=== PATIENT | female | born 1955 | race Caucasian/White ===

== ENCOUNTER 2016-04-25 07:57 | Inpatient (IN) | payer BC, MEDICAID ==
[2015-10-10 14:46] VITALS: Ht 177.8 cm; Wt 64.4 kg
[~2016-04-25] VITALS: Ht 177.8 cm; Wt 64.4 kg
[2016-04-25 07:57] VITALS: BP 124/67; PULSE 105; RESP 22; TEMP 98.1; O2SAT 86
[~2016-04-25 07:57] MED LIST: APIX5TAB PO; BUPR-120 PO; BUPR300T55 PO; CARI350T27 PO; CLON0.5T4 PO; DILT180C88 PO; FLUT1DIS3 INH; HYDR-4100 PO; LETR2.5T6 PO; LEVO50TA8 PO; OMEP20CA10 PO; PANT20TA2 PO; PRED20TA PO; QUET200T PO; VENL75CA PO; ZOLP10TA2 PO; [UNRECOGNIZED DRUG - CODE] PO
--- NOTE | 2016-04-25 07:57 | NUR ---
BROUGHT BACK TO BED #7 AND TRIAGED. WILL ASSUME CARE
--- NOTE | 2016-04-25 08:05 | NUR ---
DR ESTRADA AT BEDSIDE FOR EVALUATION
--- NOTE | 2016-04-25 08:06 | NUR ---
TRUCK DRIVER INSTRUCTOR AT BEDSIDE
[2016-04-25] MEDS ORDERED: methylPREDNISolone SOD SUCC/PF 62.5 MG/ML VIAL IVP ONE (08:15)
[2016-04-25] MEDS ORDERED: IPRATROPIUM/ALBUTEROL SULFATE 3 ML AMPUL.NEB INH ONE (08:15)
[2016-04-25 08:20] LABS: ABG TOTAL HEMOGLOBIN 16.9 G/dL (12.0-18.0); BLOOD GAS COHb% 4.1 % (0.5-1.5); BLOOD GAS PH 7.413 (7.350-7.450); BLOOD O2Hb% 78.8 % (94.0-97.0)
--- NOTE | 2016-04-25 08:26 | NUR ---
RESPIRATORY TREATMENT IN PROGRESS
[2016-04-25 08:33] LABS: BASOPHILS # (AUTO) 0.1 K/uL (0.0-0.2); BASOPHILS % (AUTO) 0.6 % (0.0-2.0); EOSINOPHILS # (AUTO) 0.1 K/uL (0.0-0.4); EOSINOPHILS % (AUTO) 0.4 % (0.0-4.0); HEMATOCRIT 48.9 % (36-48); HEMOGLOBIN 15.7 g/dL (12.0-16.0); LYMPHOCYTES # (AUTO) 1.3 K/uL (1.0-5.5); LYMPHOCYTES % (AUTO) 7.6 % (20.5-51.5); MEAN CORPUSCULAR HEMOGLOBIN 31 pg (27-31); MEAN CORPUSCULAR HGB CONC 32 % (32-36); MEAN CORPUSCULAR VOLUME 95 fL (79.0-98.0); MONOCYTES # (AUTO) 1.5 K/uL (0.0-1.0); MONOCYTES % (AUTO) 9.1 % (1.7-9.3); NEUTROPHILS # (AUTO) 13.7 K/uL (1.8-7.7); NEUTROPHILS % (AUTO) 82.3 % (40.0-70.0); PLATELET COUNT (AUTO) 202 K/uL (130-430); RED BLOOD CELL COUNT(AUTO) 5.14 MIL/uL (4.2-6.2); WHITE BLOOD COUNT (AUTO) 16.7 K/uL (4.8-10.8)
[2016-04-25 08:44] LABS: CALCIUM 9.1 mg/dL (8.4-11.0); CREATININE 0.78 mg/dL (0.55-1.30); POTASSIUM 4.6 mmol/L (3.5-5.1)
--- NOTE | 2016-04-25 08:44 | NUR ---
Medication reconciliation completed with information provided by MEDICATIONS BROUGHT IN BY PT. Any prior medication reconciliation on file was reviewed and corrected.
[2016-04-25 08:51] LABS: INR 1.1 (0.8-1.2); PROTHROMBIN TIME 11.4 SECS (9.5-12.5)
[2016-04-25 08:58] LABS: ALBUMIN 3.2 g/dL (3.4-4.8); TOTAL BILIRUBIN 0.4 mg/dL (0.0-1.0); TOTAL PROTEIN, SERUM 7.3 g/dL (6.4-8.3)
[2016-04-25] MEDS ORDERED: cefTRIAXone 1 GM IVPB PREMIX 50 ML IV ONE (09:00)
[2016-04-25] MEDS ORDERED: AZITHROMYCIN 500 MG in NS 250 ML IV ONE (09:00)
--- NOTE | 2016-04-25 09:22 | NUR ---
Patient removed supplemental O2 to go to the bathroom. On return to room, moderately increased work of breathing, O2 sat decreased to 79% on RA. Patient asked, "Do you think they'll admit me now?" 2LPM O2 via NC applied, O2 sat improved to 88% with improved work of breathing.
[2016-04-25 09:30] LABS: BILIRUBIN,URINE 1+ (NEGATIVE); BLOOD, URINE 1+ (NEGATIVE); CLARITY/URINE CLEAR (CLEAR); COLOR,URINE YELLOW (YELLOW); GLUCOSE,URINE NEGATIVE (NEGATIVE); KETONES,URINE 1+ (NEGATIVE); LEUKOCYTE ESTERASE ,URINE NEGATIVE (NEGATIVE); NITRITE, URINE NEGATIVE (NEGATIVE); PH,URINE 5.5 (5.0-8.0); PROTEIN URINE 2+ (NEGATIVE); UROBILINOGEN,URINE 0.2 (0.2-1.0)
[2016-04-25] MEDS ORDERED: ASPIRIN 325 MG TABLET PO ONE (09:30)
[2016-04-25] MEDS ORDERED: ENOXAPARIN SODIUM 60 MG/0.6 ML SYRINGE SUBCUT ONE (09:30)
--- NOTE | 2016-04-25 09:32 | NUR ---
DR ESTRADA IN TO SPEAK WITH PT REGARDING LAB RESULTS. DAUGHTER AT BEDSIDE.
[2016-04-25] MEDS ORDERED: AZITHROMYCIN 500 MG/VIAL (ZITHROMAX) IV ONE (09:33)
[2016-04-25 09:45] LABS: BACTERIA,URINE FEW /HPF (None Seen); WBC,URINE 0-3 /HPF (0-3)
[2016-04-25] MEDS ORDERED: ONDANSETRON HCL 4 MG/2 ML VIAL IVP PRN (10:00)
[2016-04-25] MEDS ORDERED: ALBUTEROL SULFATE 0.083% 2.5 MG/3 ML VIAL.NEB INH PRN (10:00)
[2016-04-25] MEDS ORDERED: *LOVENOX 1MG/KG Q12H/PHARMACY XX ONE (10:00)
[2016-04-25] MEDS ORDERED: NITROGLYCERIN 0.4 MG TAB.SUBL SL PRN (10:00)
[2016-04-25] MEDS ORDERED: ACETAMINOPHEN 325 MG TABLET PO PRN (10:00)
[2016-04-25] MEDS ORDERED: DIPHENHYDRAMINE INJ 50 MG/ML VIAL IVP ONE (10:15)
--- NOTE | 2016-04-25 10:23 | NUR ---
Patient will be admitted to care of DR ALFREDO. Admitted to TELE unit. Will go to room 101-A. Belongings list completed. Summary report printed. Report given to NURSE.
[2016-04-25] MEDS ORDERED: PANTOPRAZOLE SODIUM 40 MG/VIAL (PROTONIX) IVP ONE (10:30)
[2016-04-25] MEDS ORDERED: ASPIRIN 81 MG TAB.CHEW PO ONE (10:30)
--- NOTE | 2016-04-25 10:30 | NUR ---
ADMISSION NOTE Received patient from ER via gurney. Patient admitted with diagnosis of NSTEMI and COPD exacerbation. Patient is awake, alert, oriented X 3. Patient oriented to hospital room, call light, toileting, pain management and safety-teach back done. Patient informed that Gertrude will be her nurse and that their room number is 101 A. Personal belongings checked and Belongings List documented. Call light within reach.
[2016-04-25 10:33] VITALS: BP 104/64; PULSE 92; RESP 18; TEMP 99.4; O2SAT 92
--- NOTE | 2016-04-25 11:05 | NUR ---
assessment notes: transferred patient to room 101A.report given by roosevelt parkeron o2 2l/nc good saturation. iv saline lock at right forearm intact.pt coughing a lot.placed on telemetry ,sinus rhythm.call light with in reach.needs attended to. a friend at bedside.
--- NOTE | 2016-04-25 12:00 | NUR ---
echo: echo done at bedside.
[2016-04-25 13:20] VITALS: BP 104/64; PULSE 86
[2016-04-25] MEDS: ALBUTEROL SULFATE 0.083% 2.5 MG/3 ML VIAL.NEB INH SCH ×2 (13:22→19:39)
[2016-04-25] MEDS ORDERED: IOHEXOL 100 ML IV ONE (14:34)
--- NOTE | 2016-04-25 14:37 | NUR ---
RADIOLOGY: PATIENT TO RADIOLOGY PER WHEEL CHAIR FOR CT SCAN ANGIOGRAM WITH CONTRAST IN STABLE CONDITION.
[2016-04-25] MEDS: HYDROcodone/ACETAMIN 10-325 MG TAB PO PRN ×2 (15:54→22:17)
--- NOTE | 2016-04-25 15:57 | NUR ---
pt. c/o neck and bsack pain and medicated with [place] as ordered ( see e-mar). pt. awake, repositioned self. needs attended.
[2016-04-25 16:11] VITALS: BP 115/74; PULSE 58; RESP 16; TEMP 97.8; O2SAT 91
--- NOTE | 2016-04-25 17:40 | NUR ---
pt. still c/o back and neck pain, did not help much on the oral pain med as pt. verbalized.will medicate with Morphine as ordered.pt. eating dinner when checked on high fowlers position. O2 on , noted occasional productive cough.
[2016-04-25] MEDS: MORPHINE 2 MG/ML INJ. SYRINGE IVP PRN (17:42)
--- NOTE | 2016-04-25 17:49 | NUR ---
CARDIO CONSULT: CALLED DR ALBERTO'S EXCHANGE AND LEFT MESSAGE C/O JENI.
--- NOTE | 2016-04-25 19:15 | NUR ---
pt. remains awake, informed about change of shift, MARGOT Youngblood will endorse pt. to incoming shift.
[2016-04-25 19:40] VITALS: BP 118/72; PULSE 81; RESP 15; TEMP 98.7; O2SAT 91
--- NOTE | 2016-04-25 20:15 | NUR ---
OPENING NOTES PATIENT IS A/OX4. NO SIGNS OF DISTRESS. BREATHING IS NON LABORED. O2 IS ON AND FLOWING. PATIENT HAS NO COMPLAINTS OF PAIN. IV IS PATENT AND SHOWS NO SIGNS OF COMPLAINTS. COMMODE WAS PLACED AT BEDSIDE FOR PATIENT WITH HAT. PATIENT WAS EDUCATED ON FLUID RESTRICTION. PATIENT VERBALIZED UNDERSTANDING. PATIENT INSTRUCTED TO CALL FOR ASSISTANCE. BED ALARM IS ON. CALL LIGHT IS WITHIN. WILL CONTINUE TO MONITOR.
[2016-04-25] MEDS: methylPREDNISolone SOD SUCC 40 MG/ML VIAL IVP SCH (20:52)
[2016-04-25] MEDS: ENOXAPARIN SODIUM 60 MG/0.6 ML SYRINGE SUBCUT SCH (20:52)
--- NOTE | 2016-04-25 22:00 | NUR ---
PATIENT REQUESTED SLEEP AID PATIENT REQUESTED SLEEP AID. WILL CALL .
--- NOTE | 2016-04-25 22:05 | NUR ---
SPOKE TO DR. STEVEN REGARDING PATIENT REQUESTING SLEEP AID. WILL INPUT NEW ORDERS.
[2016-04-25] MEDS ORDERED: ZOLPIDEM TARTRATE 5 MG TABLET PO ONE (22:15)
[2016-04-26] VITALS: BP 135/78; PULSE 78; RESP 17; TEMP 98.6; O2SAT 95
--- NOTE | 2016-04-26 00:10 | NUR ---
ROUNDS PATIENT IS IN BED WATCHING TV AND RESTING COMFORTABLY. NO SIGN OF DISTRESS. BREATHING IS NON LABORED. CALL LIGHT IS WITHIN REACH. WILL CONTINUE TO MONITOR.
[2016-04-26] MEDS ORDERED: DIPHENHYDRAMINE INJ 50 MG/ML VIAL IVP PRN (00:15)
--- NOTE | 2016-04-26 03:10 | NUR ---
ROUNDS PATIENT IS IN RESTING AND WATCHING. NO SIGNS OF DISTRESS. BREATHING IS NON LABORED. WILL CONTINUE TO MONITOR. CALL LIGHT IS WITHIN REACH. PATIENT INSTRUCTED TO CALL FOR ASSISTANCE.
[2016-04-26] MEDS: ALBUTEROL SULFATE 0.083% 2.5 MG/3 ML VIAL.NEB INH SCH ×4 (03:22→19:35)
[2016-04-26] MEDS: MORPHINE 2 MG/ML INJ. SYRINGE IVP PRN ×2 (03:49→19:20)
[2016-04-26 04:01] VITALS: BP 128/64; PULSE 83; RESP 18; TEMP 98.7; O2SAT 96
--- NOTE | 2016-04-26 05:15 | NUR ---
HYGIENE PATIENT WAS GIVEN ORAL HYGIENE PRODUCTS.
--- NOTE | 2016-04-26 06:46 | NUR ---
CLOSING NOTES PATIENT IS IN BED RESTING AND WATCHING TV. NO SIGNS OF DISTRESS. BREATHING IS NON LABORED. IV IS PATENT AND SHOWS NO SIGNS OF COMPLICATION. PATIENT HAS NO COMPLAINTS OF PAIN. PATIENT WAS EDUCATED ON FLUID RESTRICTIONS. PATIENT VERBALIZED UNDERSTANDING. WILL ENDORSE TO THE MORNING NURSE.
[2016-04-26 07:25] LABS: POTASSIUM 3.9 mmol/L (3.5-5.1)
[2016-04-26 07:26] LABS: CALCIUM 9.3 mg/dL (8.4-11.0); CREATININE 0.58 mg/dL (0.55-1.30); PHOSPHORUS 2.5 mg/dL (2.7-4.5)
--- NOTE | 2016-04-26 07:52 | NUR ---
Patient confusion on afib medicine. Review of previous encounter medicines. Notified pt she is on eliquis for afib. Maintains there is another medicine for afib.
--- NOTE | 2016-04-26 08:05 | NUR ---
Patient says she feels like she wants to leave the hospital because of fluid restriction, and not being prescribed another medicine in addition to ambien to help her sleep, and not being able to see the specialists she normally sees to get her prescriptions. Asked patient what I could help with right now. Says she would not need anything except a deodorant and private room. Wants to watch television at night. Will ask charge nurse if we can get private room.
--- NOTE | 2016-04-26 08:25 | NUR ---
Patient moved to room 102A. Says its up to providers to prescribe medication and she will see if she will stay. [place] like she would yesterday and did not want to do that to her daughters.
[2016-04-26 08:49] LABS: HEMATOCRIT 49.7 % (36-48); HEMOGLOBIN 16.2 g/dL (12.0-16.0); MEAN CORPUSCULAR HEMOGLOBIN 30 pg (27-31); MEAN CORPUSCULAR HGB CONC 33 % (32-36); MEAN CORPUSCULAR VOLUME 93 fL (79.0-98.0); PLATELET COUNT (AUTO) 230 K/uL (130-430); RED BLOOD CELL COUNT(AUTO) 5.36 MIL/uL (4.2-6.2); RED CELL DISTRIBUTION WIDTH 13.7 % (9.0-15.0); WHITE BLOOD COUNT (AUTO) 14.5 K/uL (4.8-10.8)
[2016-04-26] MEDS: methylPREDNISolone SOD SUCC 40 MG/ML VIAL IVP SCH ×2 (08:50→21:55)
[2016-04-26] MEDS: PANTOPRAZOLE SODIUM 40 MG/VIAL (PROTONIX) IVP SCH (08:51)
[2016-04-26] MEDS: ENOXAPARIN SODIUM 60 MG/0.6 ML SYRINGE SUBCUT SCH ×2 (08:51→21:09)
[2016-04-26] MEDS: clonazePAM 0.5 MG TABLET PO SCH ×2 (08:52→21:00)
[2016-04-26] MEDS: QUEtiapine FUMARATE 100 MG TABLET PO SCH ×3 (08:52→21:10)
[2016-04-26] MEDS: ASPIRIN 81 MG TAB.CHEW PO SCH (08:52)
[2016-04-26] MEDS: buPROPion HCL 150 MG XL TAB PO SCH (08:52)
[2016-04-26] MEDS: DILTIAZEM HCL 180 MG CAP.SR.24H PO SCH (08:55)
[2016-04-26] MEDS: CARISOPRODOL 350 MG TABLET PO SCH ×5 (08:56→21:10)
[2016-04-26] MEDS: HYDROcodone/ACETAMIN 10-325 MG TAB PO PRN ×2 (08:56→18:25)
[2016-04-26] MEDS: AZITHROMYCIN 500 MG in NS 250 ML IV SCH (08:56)
[2016-04-26 08:58] VITALS: BP 123/66; PULSE 90; RESP 18; TEMP 97; O2SAT 94
[2016-04-26] MEDS ORDERED: Effexor XR 37.5 MG PO SCH (09:00)
[2016-04-26] MEDS ORDERED: FLUTICASONE/VILANTEROL 1 EACH BLST.W.DEV INH SCH (09:00)
[2016-04-26] MEDS: LEVOTHYROXINE SODIUM 0.05 MG TABLET PO SCH (09:00)
--- NOTE | 2016-04-26 10:00 | NUR ---
Patient c/o some itching at this time to provider. Decrease rate of antibiotic provider directs web content writer. Rate decreased.
[2016-04-26 10:05] LABS: ATYPICAL LYMPHOCYTES % 0 % (0-0); BAND % (MANUAL) 0 % (0-6); BASOPHILS % (MANUAL) 0 % (0-2); EOSINOPHILS % (MANUAL) 0 % (0-7); LYMPHOCYTES % (MANUAL) 14 % (20-46); MONOCYTES % (MANUAL) 5 % (0-11)
[2016-04-26 12:00] VITALS: BP 102/66; PULSE 94; RESP 21; TEMP 96; O2SAT 97
--- NOTE | 2016-04-26 12:47 | NUR ---
Patient tolerated 100% of lunch. Needs met at this time.
--- NOTE | 2016-04-26 14:16 | NUR ---
Patient needs met. Refuses the soma and seroquel at this time. Says she only takes prn soma qid. Says seroquel 200 was enough.
[2016-04-26 19:30] VITALS: BP 104/71; PULSE 83; RESP 16; TEMP 97.8; O2SAT 94
--- NOTE | 2016-04-26 19:30 | NUR ---
notes received the pt from the day nurse,pt a/a/ox4 no c/o pain or discomfort.o2 via nc in place at 2l/min.monitor in place and shows SR iv intact to rt wrist,no redness or swelling noted.pt on fluid restriction. dr quintero is here making rounds.no c/o pain or sob when asked.educated the pt to call for and needs she may have.
[2016-04-26] MEDS: ZOLPIDEM TARTRATE 5 MG TABLET PO PRN (21:09)
--- NOTE | 2016-04-26 21:30 | NUR ---
notes pt appears asleep,no respiratory difficulty noted.call light within reach.continue to monitor.
--- NOTE | 2016-04-26 23:37 | NUR ---
notes pt sleeping,call light within reach.continue to monitor.
[2016-04-27] VITALS (7 sets, daily range): BP systolic 93–125; BP diastolic 58–71; PULSE 73–87; RESP 18–20; TEMP 96.5–98.2; O2SAT 91–96
--- NOTE | 2016-04-27 01:25 | NUR ---
notes pt remains asleep ,call light within reach.continue to monitor.
[2016-04-27] MEDS: ALBUTEROL SULFATE 0.083% 2.5 MG/3 ML VIAL.NEB INH SCH ×2 (01:30→07:03)
--- NOTE | 2016-04-27 03:16 | NUR ---
notes pt remains asleep,no distress noted.call light within reach.continue to monitor.
--- NOTE | 2016-04-27 05:22 | NUR ---
notes pt sleeping,no respiratory difficulty noted.call light within reach.continue to monitor.
[2016-04-27] MEDS: LEVOTHYROXINE SODIUM 0.05 MG TABLET PO SCH (06:14)
--- NOTE | 2016-04-27 06:24 | NUR ---
closing notes pt awaken for am medication,pt with no complaints.will endorse the care of the pt to the day nurse.
[2016-04-27 07:21] LABS: BASOPHILS % (AUTO) 0.1 % (0.0-2.0); HEMATOCRIT 44.7 % (36-48); HEMOGLOBIN 14.6 g/dL (12.0-16.0); LYMPHOCYTES # (AUTO) 0.9 K/uL (1.0-5.5); LYMPHOCYTES % (AUTO) 8.6 % (20.5-51.5); MEAN CORPUSCULAR HEMOGLOBIN 31 pg (27-31); MEAN CORPUSCULAR HGB CONC 33 % (32-36); MEAN CORPUSCULAR VOLUME 94 fL (79.0-98.0); MONOCYTES # (AUTO) 0.4 K/uL (0.0-1.0); MONOCYTES % (AUTO) 3.5 % (1.7-9.3); NEUTROPHILS # (AUTO) 9.3 K/uL (1.8-7.7); NEUTROPHILS % (AUTO) 87.8 % (40.0-70.0); PLATELET COUNT (AUTO) 219 K/uL (130-430); RED BLOOD CELL COUNT(AUTO) 4.73 MIL/uL (4.2-6.2); RED CELL DISTRIBUTION WIDTH 14.1 % (9.0-15.0); WHITE BLOOD COUNT (AUTO) 10.6 K/uL (4.8-10.8)
[2016-04-27 07:30] LABS: CALCIUM 9.1 mg/dL (8.4-11.0); CREATININE 0.7 mg/dL (0.55-1.30); POTASSIUM 5.3 mmol/L (3.5-5.1)
--- NOTE | 2016-04-27 08:00 | NUR ---
PT IN BED, AA0, NO DISTRESS, NO SOB, C/O PAIN. WILL ADDRESS APIN MED, VITALS 118/63 HR 87, O2 SAT 91%
[2016-04-27] MEDS: CARISOPRODOL 350 MG TABLET PO SCH ×4 (08:33→20:40)
[2016-04-27] MEDS: ASPIRIN 81 MG TAB.CHEW PO SCH (08:33)
[2016-04-27] MEDS: QUEtiapine FUMARATE 100 MG TABLET PO SCH ×3 (08:33→20:40)
[2016-04-27] MEDS: AZITHROMYCIN 500 MG in NS 250 ML IV SCH (08:35)
[2016-04-27] MEDS: DILTIAZEM HCL 180 MG CAP.SR.24H PO SCH (08:35)
[2016-04-27] MEDS: methylPREDNISolone SOD SUCC 40 MG/ML VIAL IVP SCH (08:36)
[2016-04-27] MEDS: PANTOPRAZOLE SODIUM 40 MG/VIAL (PROTONIX) IVP SCH (08:36)
[2016-04-27] MEDS: ENOXAPARIN SODIUM 60 MG/0.6 ML SYRINGE SUBCUT SCH ×2 (08:38→20:41)
[2016-04-27] MEDS: buPROPion HCL 150 MG XL TAB PO SCH (08:40)
[2016-04-27] MEDS: clonazePAM 0.5 MG TABLET PO SCH ×2 (08:50→20:40)
--- NOTE | 2016-04-27 08:53 | NUR ---
Faxed DC order to arrange home health to [phone] Filed fax confirmation in [employer]ocrates.
[2016-04-27] MEDS: HYDROcodone/ACETAMIN 10-325 MG TAB PO PRN ×3 (08:57→18:34)
--- NOTE | 2016-04-27 10:00 | NUR ---
PT IN BED, C/O PAIN, 06/24, REQUESTED FOR MORPHINE BUT PT IS NOT ON MORPHINE, PT SAID IT IS OK, TOLD HER WE WILL CALL MD TO ASK IF OK TO RESUME MORPHINE.
[2016-04-27] MEDS ORDERED: BISACODYL 5 MG TABLET.DR (DULCOLAX) PO PRN ×2 (11:45→14:15)
--- NOTE | 2016-04-27 11:48 | NUR ---
SPOKE WITH DR MALIK RE K LEVEL OF 5.3 , NO ORDERS GIVEN. MADE AWARE RE PT REQUESTING FOR MORPHINE, NO ORDER GIVEN, NEW ORDER GIVEN ONLY FOR STOOL SOFTENER. ORDERS DOCUMENTED AND CARRIED OUT
--- NOTE | 2016-04-27 11:51 | NUR ---
PT IN BED, MADE AWARE OF NEW ORDERS FROM MD. NO SOB, NO DISTRESS.
--- NOTE | 2016-04-27 12:00 | NUR ---
PT IN BED, NO C/O PAIN, NO SOB, NO DISTRESS.
[2016-04-27] MEDS ORDERED: methylPREDNISolone SOD SUCC/PF 62.5 MG/ML VIAL IVP SCH (14:00)
--- NOTE | 2016-04-27 14:00 | NUR ---
PT IN BED, USED THE BS COMMODE FOR URINATION. DID NOT REQUIRE ASSIST.
--- NOTE | 2016-04-27 17:50 | NUR ---
PT IN BED, FAMILY AT BEDSIDE, EATING DINNER FAMILY BROUGHT, NO C/O PAIN. NO SOB, NO DISTRESS.
--- NOTE | 2016-04-27 18:00 | NUR ---
PT IN BED, REQUESTED FOR PAIN MEDS FOR C/O PAIN ON NECK AND LOWER BACK. WILL PROVIDE PAIN MED.
--- NOTE | 2016-04-27 19:30 | NUR ---
INITIAL NOTE Patient resting on the bed. Respiration even and unlabored. No acute distress. On O2 2L/min via NC. C/o neck and lower back pain 6/10, [place] 10/325mg was given at 1834. Per patient she had chronic neck and lower back pain for about six years, that is the pain she can tolerated now, pain med help a little. Skin warm and dry to touch. SL intact to RFA, no redness, no swelling. Discussed the safety issue, use call light when need help, and plan of care, verbally understanding. Bedside commode provided at bedside. Patient refused to turn on bed alarm. Safety measure maintained. Bed in low position, side rails up. Will continue to monitor.
[2016-04-27] MEDS ORDERED: FAMOTIDINE 20 MG TABLET PO SCH (21:00)
[2016-04-27] MEDS: ZOLPIDEM TARTRATE 5 MG TABLET PO PRN (21:50)
--- NOTE | 2016-04-27 21:51 | NUR ---
AMBIEN GIVEN Patient c/o insomnia, Ambien 10mg PO given as ordered. No acute distress. Continue on O2 2L/min via NC. Safety measure maintained. Call light within reached. Will continue to monitor.
--- NOTE | 2016-04-27 22:30 | NUR ---
ROUND Patient resting on the bed with eyes closed. No acute distress. Continue on O2 via NC. Safety measure maintained. Call light within reached. Continue to monitor.
[2016-04-28] VITALS (8 sets, daily range): BP systolic 93–138; BP diastolic 55–77; PULSE 73–106; RESP 17–20; TEMP 96.4–97.8; O2SAT 93–99
[2016-04-28] MEDS: HYDROcodone/ACETAMIN 10-325 MG TAB PO PRN ×5 (00:05→23:47)
--- NOTE | 2016-04-28 00:07 | NUR ---
NORCO GIVEN Patient c/o lower back pain 10/25, [place] 10/325mg 1 tab PO given as ordered. No acute distress. Continue on O2 via NC. Safety measure maintained. Bed in low position, side rails up. Call light within reached. Continue to monitor.
--- NOTE | 2016-04-28 01:55 | NUR ---
ROUND Patient resting on the bed with eyes closed. No acute distress. Respiration even and unlabored. Continue on O2 via NC. Safety measure maintained. Call light within reached. Continue to monitor.
--- NOTE | 2016-04-28 04:00 | NUR ---
ROUND Patient sleeping comfortable. No acute distress. Respiration even and unlabored. Continue on O2 via NC. Safety measure maintained. Bed in low position, side rails up. Call light within reached. Continue to monitor.
--- NOTE | 2016-04-28 04:42 | NUR ---
NORCO GIVEN Patient c/o lower back pain 10/25, BP= 113/74, [place] 10/325mg 1 tab PO given as ordered. No acute distress. Continue on O2 via NC. Safety measure maintained. Bed in low position, side rails up. Call light within reached. Continue to monitor.
--- NOTE | 2016-04-28 05:45 | NUR ---
REASSESSED THE PAIN Patient still with pain 07/25. No acute distress. Patient stated "I used to have pain all the time. Some days good and some days not good. I will take another [place] when the time due." Instructed patient to take a deep breath when pain, verbally understanding. Safety measure maintained. Call light within reached. Will continue to monitor.
[2016-04-28] MEDS: LEVOTHYROXINE SODIUM 0.05 MG TABLET PO SCH (06:43)
--- NOTE | 2016-04-28 06:50 | NUR ---
CLOSING NOTE Patient resting on the bed. Respiration even and unlabored. No acute distress. On O2 2L/min via NC. Skin warm and dry to touch. SL intact to RFA, no redness, no swelling. All needs met. Hourly rounding during shift. Patient refused to turn on bed alarm. Safety measure maintained. Bed in low position, side rails up. Will endorse to morning shift nurse.
[2016-04-28 07:06] LABS: BASOPHILS # (AUTO) 0.1 K/uL (0.0-0.2); BASOPHILS % (AUTO) 0.6 % (0.0-2.0); EOSINOPHILS # (AUTO) 0.1 K/uL (0.0-0.4); EOSINOPHILS % (AUTO) 1.3 % (0.0-4.0); HEMATOCRIT 47.5 % (36-48); HEMOGLOBIN 15.2 g/dL (12.0-16.0); LYMPHOCYTES # (AUTO) 2.5 K/uL (1.0-5.5); LYMPHOCYTES % (AUTO) 26.7 % (20.5-51.5); MEAN CORPUSCULAR HEMOGLOBIN 31 pg (27-31); MEAN CORPUSCULAR HGB CONC 32 % (32-36); MEAN CORPUSCULAR VOLUME 95 fL (79.0-98.0); MONOCYTES # (AUTO) 0.9 K/uL (0.0-1.0); MONOCYTES % (AUTO) 9.3 % (1.7-9.3); NEUTROPHILS # (AUTO) 5.7 K/uL (1.8-7.7); NEUTROPHILS % (AUTO) 62.1 % (40.0-70.0); PLATELET COUNT (AUTO) 235 K/uL (130-430); RED BLOOD CELL COUNT(AUTO) 4.98 MIL/uL (4.2-6.2); RED CELL DISTRIBUTION WIDTH 14.2 % (9.0-15.0); WHITE BLOOD COUNT (AUTO) 9.3 K/uL (4.8-10.8)
[2016-04-28 07:57] LABS: CALCIUM 9.2 mg/dL (8.4-11.0); CREATININE 0.81 mg/dL (0.55-1.30); POTASSIUM 4.2 mmol/L (3.5-5.1)
--- NOTE | 2016-04-28 08:00 | NUR ---
NOTE PT SITTING UP IN BED WITH O2 AT 2L/NC EATING HER BREAKFAST AT THIS TIME. NO SOB/RESP DISTRESS OR PAIN/DISCOMFORT WAS NOTED. PT HAS COUGHING EPISODES, BUT NOT PRODUCTIVE AT THIS TIME. IV ON RIGHT FOREARM INTACT AND PATENT AT THIS TIME. PT HAS BSC, REFUSES TO HAVE BED ALARM ON AT THIS TIME. STATES THE BED ALARM SOUND IS TOO LOUD FOR HER. PT WAS INSTRUCTED TO CALL FOR ASSIST WHEN GETTING OUT OF BED. PT STATES SHE HAS A STEADY GAIT AND NO NEED FOR ASSISTANCE FOR HER AT THIS TIME. PT ALSO REQUESTED HER DOOR BE KEPT CLOSED AT ALL TIMES. PT STATES SHE WILL CALL IF SHE HAS ANY NEEDS OR FOR CARE. TELE UNIT INTACT AND ATTACHED AT THIS TIME. CALL LIGHT WITHIN REACH.
[2016-04-28] MEDS: DILTIAZEM HCL 180 MG CAP.SR.24H PO SCH (08:12)
[2016-04-28] MEDS: clonazePAM 0.5 MG TABLET PO SCH ×2 (08:12→21:00)
[2016-04-28] MEDS: ASPIRIN 81 MG TAB.CHEW PO SCH (08:12)
[2016-04-28] MEDS: QUEtiapine FUMARATE 100 MG TABLET PO SCH ×3 (08:12→21:26)
[2016-04-28] MEDS: buPROPion HCL 150 MG XL TAB PO SCH (08:12)
[2016-04-28] MEDS: AZITHROMYCIN 250 MG TABLET PO SCH (08:13)
[2016-04-28] MEDS: ENOXAPARIN SODIUM 60 MG/0.6 ML SYRINGE SUBCUT SCH ×2 (08:13→21:26)
[2016-04-28] MEDS: CARISOPRODOL 350 MG TABLET PO SCH ×4 (08:13→21:00)
--- NOTE | 2016-04-28 10:29 | NUR ---
pt lives in mobile home with daugh. followed by career placement services counselor. may need social science instructor to help with sevices that may assist in prevention of readmissions and supportive resources for late stage lung dz. grant antoine/lesvia/karlee [facility] [phone]
--- NOTE | 2016-04-28 10:35 | NUR ---
NOTE PT STATES SHE HAS NO NEEDS AT THIS TIME. CALL LIGHT WITHIN REACH.
--- NOTE | 2016-04-28 13:50 | NUR ---
NOTE PT HAS HER ROOM DARK FOR COMFORT. PT ASLEEP AT THIS TIME. NO SOB/RESP DISTRESS OR PAIN/DISCOMFORT NOTED AT THIS TIME. CALL LIGHT WITHIN REACH.
[2016-04-28] MEDS: methylPREDNISolone SOD SUCC/PF 62.5 MG/ML VIAL IVP SCH ×2 (14:43→21:27)
[2016-04-28] MEDS: ALBUTEROL SULFATE 0.083% 2.5 MG/3 ML VIAL.NEB INH SCH ×3 (16:06→23:00)
[2016-04-28] MEDS: IPRATROPIUM BROM 0.5 MG/2.5 ML VIAL.NEB (ATROVENT) INH SCH ×3 (16:07→23:00)
--- NOTE | 2016-04-28 18:20 | NUR ---
NOTE PT SITTING UP IN BED FINISHING HER DINNER TRAY, NO SOB/RESP DISTRESS OR PAIN/DISCOMFORT NOTED AT THIS TIME. TELE UNIT ATTACHED AND TRANSMITTING WELL. IV IN RIGHT HAND INTACT AND PATENT AT THIS TIME. PT WAS CHECKED ON Q1' AND PRN FOR NEEDS AND CARE. PT MAINTAINED WITH SAFETY PRECAUTIONS ALL SHIFT. PT REFUSED BED ALARM ALL SHIFT TO BE ON. CALL LIGHT WITHIN REACH.
--- NOTE | 2016-04-28 19:42 | NUR ---
Initial PM Note Pt was received lying in bed fully AAO X4, [place] speaking. Pt speaks and understand little [place]. No acute distress noted at this time. No c/o pain or discomfort. Saline lock is patent in LAC without any signs of infiltration. Fall precautions are in place. Bed is in the lowest and locked positions. Call light is with pt and bed alarm is on. Pt was instructed to call for assistance as needed and pt verbalized understanding. Will continue to monitor pt. Addendum: 04/28/16 at 1947 by Karuna Baeza RN Correction: Pt is Kosovan speaking and able to make her needs known. Saline lock is patent in RFA without any signs of infiltration. Bed alarm is off.
[2016-04-28] MEDS: ZOLPIDEM TARTRATE 5 MG TABLET PO PRN (21:26)
--- NOTE | 2016-04-28 21:27 | NUR ---
HS Medications/Safety HS medications given to pt, including Ambien 10mg po per pt's request for sleep. Pt refused Soma and Klonopin, but was given Seroquel with the Ambien per her request. Pt was instructed on the potential for fall due to the Seroquel and Ambien. Pt stated, "I know." Pt was instructed to call for assistance as needed, especially before getting out of bed. Pt verbalized understanding. Call light is with pt and bedside items are within pt's reach. Will continue to monitor pt.
--- NOTE | 2016-04-28 22:00 | NUR ---
Rounds Pt is resting comfortably in bed. No acute distress noted. Call light is with pt and bedside items are within pt's reach.
--- NOTE | 2016-04-28 23:47 | NUR ---
Pain Medication [place] 10/325mg 1 tablet was given po for c/o back pain with relief.
[2016-04-29 00:24] VITALS: BP 108/62; PULSE 79; RESP 18; TEMP 97.8; O2SAT 97
--- NOTE | 2016-04-29 01:30 | NUR ---
Rounds Pt is sleeping comfortably in bed. Call light is with pt.
[2016-04-29] MEDS: ALBUTEROL SULFATE 0.083% 2.5 MG/3 ML VIAL.NEB INH SCH ×4 (03:00→14:10)
[2016-04-29] MEDS: IPRATROPIUM BROM 0.5 MG/2.5 ML VIAL.NEB (ATROVENT) INH SCH ×4 (03:00→14:10)
--- NOTE | 2016-04-29 03:30 | NUR ---
Rounds Pt is sleeping comfortably in bed without any distress noted. Call light is with pt.
[2016-04-29] MEDS: HYDROcodone/ACETAMIN 10-325 MG TAB PO PRN ×3 (03:53→14:26)
--- NOTE | 2016-04-29 03:53 | NUR ---
Pain Medication [place] 10/325mg 1 tablet was given po for c/o back pain with relief.
[2016-04-29 04:29] VITALS: BP 126/86; PULSE 82; RESP 18; TEMP 97.8; O2SAT 97
--- NOTE | 2016-04-29 05:30 | NUR ---
Rounds Pt is sleeping quietly in bed. No respiratory distress noted. Call light is with pt.
[2016-04-29] MEDS: LEVOTHYROXINE SODIUM 0.05 MG TABLET PO SCH (06:27)
[2016-04-29] MEDS: methylPREDNISolone SOD SUCC/PF 62.5 MG/ML VIAL IVP SCH (06:28)
--- NOTE | 2016-04-29 06:51 | NUR ---
Closing Note Pt is awake and resting comfortably in bed. All pt's needs were attended to. No fall or injury noted this shift. Will endorse to day shift nurse.
[2016-04-29 07:57] VITALS: BP 140/76; PULSE 95; RESP 18; TEMP 97.6; O2SAT 92
--- NOTE | 2016-04-29 08:00 | NUR ---
NOTE PT SITTING UP IN BED EATING HER BREAKFAST AT THIS TIME. PT HAS O2 ON AT 2L/NC. IV IN RIGHT HAND INTACT AND PATENT AT THIS TIME. NO SOB/RESP DISTRESS OR PAIN/DISCOMFORT NOTED AT THIS TIME. PT'S TELE UNIT ON AND TRANSMITTING WELL. PT HAS BSC. PT MONITORED ON STRICT I&O'S. PT VERBALIZES UNDERSTANDING OF I&O'S AT THIS TIME. NO NEEDS NOTED. CALL LIGHT WITHIN REACH.
[2016-04-29] MEDS: clonazePAM 0.5 MG TABLET PO SCH (08:07)
[2016-04-29] MEDS: QUEtiapine FUMARATE 100 MG TABLET PO SCH ×2 (08:07→14:25)
[2016-04-29] MEDS: ASPIRIN 81 MG TAB.CHEW PO SCH (08:07)
[2016-04-29] MEDS: AZITHROMYCIN 250 MG TABLET PO SCH (08:07)
[2016-04-29] MEDS: buPROPion HCL 150 MG XL TAB PO SCH (08:07)
[2016-04-29] MEDS: DILTIAZEM HCL 180 MG CAP.SR.24H PO SCH (08:08)
[2016-04-29] MEDS: ENOXAPARIN SODIUM 60 MG/0.6 ML SYRINGE SUBCUT SCH (08:08)
[2016-04-29] MEDS: CARISOPRODOL 350 MG TABLET PO SCH ×2 (08:08→12:31)
--- NOTE | 2016-04-29 09:00 | NUR ---
NOTE DR KERR DID ROUNDS AND ORDERS GIVEN TO PT. DR KERR ALSO GAVE PT PRESCRIPTION FOR DISCHARGE HOME. CALL LIGHT WITHIN REACH.
--- NOTE | 2016-04-29 10:08 | NUR ---
Nutrition Update Shahid Scale 18 noted. Pt admitted for NSTEMI, COPD exacerbation. Diet: cardiac BMI: 20.4 kg/m2 RD to follow per nutrition care standards.
[2016-04-29 12:55] VITALS: BP 101/59; PULSE 86; RESP 17; TEMP 96.8; O2SAT 97
--- NOTE | 2016-04-29 13:00 | NUR ---
NOTE DR KERR WAS CALLED AND VERBAL DISCHARGE ORDER WAS GIVEN AT THIS TIME. TELE UNIT WAS DC'D AND RETURNED TO TRAINING ENGINEER.
--- NOTE | 2016-04-29 14:15 | NUR ---
NOTE DR KERR WAS PAGED AND VERBAL ORDER GIVEN FOR PT TO RETURN TO ALL HER HOME MEDICATIONS ON DISCHARGE. PT'S IV IN RIGHT HAND WAS DC'D. SITE BENIGN. NO SWELLING/REDNESS/BLEEDING OR TENDERNESS AT SITE NOTED AT THIS TIME. PT DRESSED IN STREET CLOTHES AND IS PACKING ALL HER BELONGINGS AT THIS TIME. PT RECEIVING HER BREATHING TREATMENTS AT THIS TIME. NO SOB/RESP DISTRESS OR PAIN/DISCOMFORT NOTED AT THIS TIME. CALL LIGHT WITHIN REACH.
--- NOTE | 2016-04-29 15:40 | NUR ---
NOTE PT OFF THE FLOOR VIA WHEELCHAIR TO PRIVATE CAR. PT HAD ALL HER BELONGINGS AND DISCHARGE PAPERWORK WITH HER. PT STABLE. NO SOB/RESP DISTRESS OR PAIN/DISCOMFORT NOTED AT THIS TIME.
[2016-04-30] MEDS ORDERED: PREDNISONE 20 MG TABLET PO SCH (09:00)
--- NOTE | 2016-05-06 13:59 | NUR ---
Discharge Follow Up Phone Call TECHNOLOGY EDUCATION INSTRUCTOR phoned patient, , on 05/05/16 and left a voicemail message. TECHNOLOGY EDUCATION INSTRUCTOR phoned and spoke with patient on 05/06/16. Patient stated that she was doing okay but still felt tired and was lacking energy. She stated she did not get a nebulizer yet and will discuss with her PCP, Dr De La Garza, at her follow up appointment tomorrow. Patient has no questions or concerns.
== END 2016-04-29 15:40 | disposition home or self-care (01) | DRG 190 ==
LOC: SED 07:57 → SMU 09:50 → STU 11:06
PROVIDERS: ADMIT Internal Medicine; ATTEND Internal Medicine
DX: J44.1 Chronic obstructive pulmonary disease with (acute) exacerbation (principal); J96.21 Acute and chronic respiratory failure with hypoxia; D68.61 Antiphospholipid syndrome; I48.0 Paroxysmal atrial fibrillation; I10 Essential (primary) hypertension; F17.210 Nicotine dependence, cigarettes, uncomplicated; I27.2 Other secondary pulmonary hypertension; E03.9 Hypothyroidism, unspecified; Z96.641 Presence of right artificial hip joint; Z79.899 Other long term (current) drug therapy; I25.2 Old myocardial infarction; Z85.3 Personal history of malignant neoplasm of breast; Z99.81 Dependence on supplemental oxygen; Z88.8 Allergy status to other drugs, medicaments and biological substances; Z91.048 Other nonmedicinal substance allergy status; Z92.3 Personal history of irradiation; Z90.49 Acquired absence of other specified parts of digestive tract; Z90.710 Acquired absence of both cervix and uterus; Z71.6 Tobacco abuse counseling
CPT/HCPCS: 36415; 36600; 71010; 71275; 80048; 80053; 80061; 81000-TC; 82803-TC; 83605; 83735-TC; 83880; 84100-TC; 84484; 85007; 85025; 85027; 85610-TC; 85730-TC; 87040-TC; 93005; 93306; 94640; 94760; 96365; 96367; 96375; 99291; C9113; J0456; J0696; J1030; J1200; J1650; J2270; J2930; J7050; J7060; Q0144; Q9967

== ENCOUNTER 2016-06-12 12:36 | Inpatient (IN) | payer BC, MEDICAID ==
[~2016-06-12] VITALS: Ht 177.8 cm; Wt 66.2 kg
[2016-06-12 12:36] VITALS: BP_SYST 158
[~2016-06-12 12:36] MED LIST changes: -BUPR300T55 PO; -OMEP20CA10 PO; -PANT20TA2 PO; -PRED20TA PO; -[UNRECOGNIZED DRUG - CODE] PO
[2016-06-12] MEDS ORDERED: ALBUTEROL SULFATE 0.083% 2.5 MG/3 ML VIAL.NEB INH PRN ×2 (12:45→13:45)
[2016-06-12] MEDS ORDERED: IPRATROPIUM BROM 0.5 MG/2.5 ML VIAL.NEB (ATROVENT) INH ONE (12:45)
[2016-06-12] MEDS ORDERED: LEVOFLOXACIN 500 MG/D5W 100 ML IV ONE (12:45)
[2016-06-12 13:02] LABS: BASOPHILS # (AUTO) 0.1 K/uL (0.0-0.2); EOSINOPHILS # (AUTO) 0.2 K/uL (0.0-0.4); EOSINOPHILS % (AUTO) 2.3 % (0.0-4.0); HEMATOCRIT 54.6 % (36-48); HEMOGLOBIN 17.7 g/dL (12.0-16.0); LYMPHOCYTES # (AUTO) 1.7 K/uL (1.0-5.5); LYMPHOCYTES % (AUTO) 22.9 % (20.5-51.5); MEAN CORPUSCULAR HEMOGLOBIN 30 pg (27-31); MEAN CORPUSCULAR HGB CONC 32 % (32-36); MEAN CORPUSCULAR VOLUME 94 fL (79.0-98.0); MONOCYTES # (AUTO) 0.7 K/uL (0.0-1.0); MONOCYTES % (AUTO) 9.5 % (1.7-9.3); NEUTROPHILS # (AUTO) 4.9 K/uL (1.8-7.7); NEUTROPHILS % (AUTO) 64.3 % (40.0-70.0); PLATELET COUNT (AUTO) 223 K/uL (130-430); RED BLOOD CELL COUNT(AUTO) 5.82 MIL/uL (4.2-6.2); RED CELL DISTRIBUTION WIDTH 14.3 % (9.0-15.0); WHITE BLOOD COUNT (AUTO) 7.6 K/uL (4.8-10.8)
[2016-06-12 13:05] LABS: BILIRUBIN,URINE NEGATIVE (NEGATIVE); BLOOD, URINE NEGATIVE (NEGATIVE); CLARITY/URINE CLEAR (CLEAR); COLOR,URINE YELLOW (YELLOW); GLUCOSE,URINE NEGATIVE (NEGATIVE); KETONES,URINE NEGATIVE (NEGATIVE); LEUKOCYTE ESTERASE ,URINE NEGATIVE (NEGATIVE); NITRITE, URINE NEGATIVE (NEGATIVE); PH,URINE 8.5 (5.0-8.0); PROTEIN URINE 1+ (NEGATIVE)
[2016-06-12 13:11] LABS: CALCIUM 9.4 mg/dL (8.4-11.0); CREATININE 0.75 mg/dL (0.55-1.30)
[2016-06-12 13:14] LABS: INR 1.1 (0.8-1.2); PROTHROMBIN TIME 11.8 SECS (9.5-12.5)
[2016-06-12 13:15] LABS: BACTERIA,URINE RARE /HPF (None Seen); RBC,URINE 0-3 /HPF (0-3); WBC,URINE 0-3 /HPF (0-3)
[2016-06-12] MEDS ORDERED: methylPREDNISolone SOD SUCC/PF 62.5 MG/ML VIAL IVP ONE (13:15)
[2016-06-12 13:16] LABS: ALBUMIN 3.9 g/dL (3.4-4.8); TOTAL BILIRUBIN 0.4 mg/dL (0.0-1.0); TOTAL PROTEIN, SERUM 7.7 g/dL (6.4-8.3)
[2016-06-12] MEDS ORDERED: ALBUTEROL SULFATE 0.083% 2.5 MG/3 ML VIAL.NEB INH ONE (13:45)
[2016-06-12] MEDS ORDERED: IPRATROPIUM BROM 0.5 MG/2.5 ML VIAL.NEB (ATROVENT) INH PRN (13:45)
[2016-06-12] MEDS ORDERED: MAGNESIUM SULFATE IN WATER 100 ML IV ONE (13:45)
[2016-06-12] MEDS ORDERED: ACETAMINOPHEN 325 MG TABLET PO PRN (13:45)
[2016-06-12 14:32] VITALS: BP_SYST 132
[2016-06-12] MEDS: QUEtiapine FUMARATE 100 MG TABLET PO SCH ×2 (15:41→20:56)
[2016-06-12] MEDS: CARISOPRODOL 350 MG TABLET PO SCH ×2 (16:53→20:56)
[2016-06-12] MEDS: HYDROcodone/ACETAMIN 10-325 MG TAB PO SCH ×2 (16:55→20:58)
[2016-06-12 19:35] VITALS: BP_SYST 128
[2016-06-12] MEDS: ALBUTEROL SULFATE 0.083% 2.5 MG/3 ML VIAL.NEB INH SCH ×2 (19:50→22:39)
[2016-06-12] MEDS: IPRATROPIUM BROM 0.5 MG/2.5 ML VIAL.NEB (ATROVENT) INH SCH ×2 (19:50→22:39)
[2016-06-12] MEDS: APIXABAN 2.5 MG TABLET PO SCH (20:56)
[2016-06-12] MEDS: clonazePAM 0.5 MG TABLET PO SCH (20:56)
[2016-06-12] MEDS: ZOLPIDEM TARTRATE 5 MG TABLET PO SCH (21:04)
[2016-06-12] MEDS: methylPREDNISolone SOD SUCC/PF 62.5 MG/ML VIAL IVP SCH (22:45)
[2016-06-13 00:06] VITALS: BP_SYST 91
[2016-06-13 04:00] VITALS: BP_SYST 98
[2016-06-13] MEDS: ALBUTEROL SULFATE 0.083% 2.5 MG/3 ML VIAL.NEB INH SCH ×6 (04:19→23:07)
[2016-06-13] MEDS: IPRATROPIUM BROM 0.5 MG/2.5 ML VIAL.NEB (ATROVENT) INH SCH ×6 (04:19→23:08)
[2016-06-13] MEDS: LEVOTHYROXINE SODIUM 0.05 MG TABLET PO SCH (06:06)
[2016-06-13] MEDS: methylPREDNISolone SOD SUCC/PF 62.5 MG/ML VIAL IVP SCH ×3 (06:07→21:18)
[2016-06-13 06:54] LABS: BASOPHILS # (AUTO) 0.1 K/uL (0.0-0.2); BASOPHILS % (AUTO) 1.3 % (0.0-2.0); EOSINOPHILS % (AUTO) 0.2 % (0.0-4.0); HEMATOCRIT 49.5 % (36-48); HEMOGLOBIN 16.1 g/dL (12.0-16.0); LYMPHOCYTES # (AUTO) 0.6 K/uL (1.0-5.5); LYMPHOCYTES % (AUTO) 11.5 % (20.5-51.5); MEAN CORPUSCULAR HEMOGLOBIN 31 pg (27-31); MEAN CORPUSCULAR HGB CONC 33 % (32-36); MEAN CORPUSCULAR VOLUME 95 fL (79.0-98.0); MONOCYTES # (AUTO) 0.1 K/uL (0.0-1.0); MONOCYTES % (AUTO) 1.6 % (1.7-9.3); NEUTROPHILS # (AUTO) 4.1 K/uL (1.8-7.7); NEUTROPHILS % (AUTO) 85.4 % (40.0-70.0); PLATELET COUNT (AUTO) 209 K/uL (130-430); RED BLOOD CELL COUNT(AUTO) 5.22 MIL/uL (4.2-6.2); RED CELL DISTRIBUTION WIDTH 14.4 % (9.0-15.0); WHITE BLOOD COUNT (AUTO) 4.9 K/uL (4.8-10.8)
[2016-06-13 07:16] LABS: ALBUMIN 3.3 g/dL (3.4-4.8); CALCIUM 8.8 mg/dL (8.4-11.0); CREATININE 0.81 mg/dL (0.55-1.30); POTASSIUM 4.1 mmol/L (3.5-5.1); TOTAL BILIRUBIN 0.3 mg/dL (0.0-1.0); TOTAL PROTEIN, SERUM 6.7 g/dL (6.4-8.3)
[2016-06-13 07:53] VITALS: BP_SYST 94
[2016-06-13] MEDS: buPROPion HCL 150 MG XL TAB PO SCH ×2 (09:00→09:02)
[2016-06-13] MEDS: LETROZOLE 2.5 MG TABLET (FEMARA) PO SCH (09:00)
[2016-06-13] MEDS: CARISOPRODOL 350 MG TABLET PO SCH ×4 (09:02→21:17)
[2016-06-13] MEDS: clonazePAM 0.5 MG TABLET PO SCH ×2 (09:02→21:17)
[2016-06-13] MEDS: QUEtiapine FUMARATE 100 MG TABLET PO SCH ×3 (09:03→21:17)
[2016-06-13] MEDS: HYDROcodone/ACETAMIN 10-325 MG TAB PO SCH ×4 (09:03→21:17)
[2016-06-13] MEDS: APIXABAN 2.5 MG TABLET PO SCH ×2 (09:04→21:17)
[2016-06-13] MEDS: LEVOFLOXACIN 250 MG/D5W 50 ML IV SCH (09:04)
[2016-06-13] MEDS: DILTIAZEM HCL 180 MG CAP.SR.24H PO SCH (09:04)
[2016-06-13] MEDS: 0.45% NACL 1,000 ML IV SCH (11:53)
[2016-06-13 12:02] VITALS: BP_SYST 115
[2016-06-13 16:04] VITALS: BP_SYST 94
[2016-06-13 20:00] VITALS: BP_SYST 107
[2016-06-14] VITALS (7 sets, daily range): BP systolic 88–127
[2016-06-14] MEDS: LEVOTHYROXINE SODIUM 0.05 MG TABLET PO SCH (06:07)
[2016-06-14] MEDS: methylPREDNISolone SOD SUCC/PF 62.5 MG/ML VIAL IVP SCH ×3 (06:08→21:25)
[2016-06-14 07:04] LABS: BASOPHILS % (AUTO) 0.2 % (0.0-2.0); HEMATOCRIT 45.3 % (36-48); HEMOGLOBIN 15.1 g/dL (12.0-16.0); LYMPHOCYTES # (AUTO) 0.6 K/uL (1.0-5.5); LYMPHOCYTES % (AUTO) 4.5 % (20.5-51.5); MEAN CORPUSCULAR HEMOGLOBIN 31 pg (27-31); MEAN CORPUSCULAR HGB CONC 33 % (32-36); MEAN CORPUSCULAR VOLUME 94 fL (79.0-98.0); MONOCYTES # (AUTO) 0.7 K/uL (0.0-1.0); MONOCYTES % (AUTO) 4.7 % (1.7-9.3); NEUTROPHILS # (AUTO) 13.1 K/uL (1.8-7.7); NEUTROPHILS % (AUTO) 90.6 % (40.0-70.0); PLATELET COUNT (AUTO) 208 K/uL (130-430); RED BLOOD CELL COUNT(AUTO) 4.81 MIL/uL (4.2-6.2); RED CELL DISTRIBUTION WIDTH 14.7 % (9.0-15.0); WHITE BLOOD COUNT (AUTO) 14.4 K/uL (4.8-10.8)
[2016-06-14] MEDS: ALBUTEROL SULFATE 0.083% 2.5 MG/3 ML VIAL.NEB INH SCH ×5 (07:25→23:00)
[2016-06-14] MEDS: IPRATROPIUM BROM 0.5 MG/2.5 ML VIAL.NEB (ATROVENT) INH SCH ×5 (07:25→23:00)
[2016-06-14] MEDS: 0.45% NACL 1,000 ML IV SCH ×3 (07:41→23:31)
[2016-06-14 07:50] LABS: CALCIUM 8.9 mg/dL (8.4-11.0); CREATININE 0.67 mg/dL (0.55-1.30); POTASSIUM 4.4 mmol/L (3.5-5.1)
[2016-06-14] MEDS: LETROZOLE 2.5 MG TABLET (FEMARA) PO SCH (09:00)
[2016-06-14] MEDS: buPROPion HCL 150 MG XL TAB PO SCH ×3 (09:00→09:06)
[2016-06-14] MEDS: LEVOFLOXACIN 250 MG/D5W 50 ML IV SCH (09:02)
[2016-06-14] MEDS: clonazePAM 0.5 MG TABLET PO SCH ×2 (09:04→21:23)
[2016-06-14] MEDS: QUEtiapine FUMARATE 100 MG TABLET PO SCH ×3 (09:04→21:23)
[2016-06-14] MEDS: DILTIAZEM HCL 180 MG CAP.SR.24H PO SCH (09:04)
[2016-06-14] MEDS: APIXABAN 2.5 MG TABLET PO SCH ×2 (09:04→21:23)
[2016-06-14] MEDS: HYDROcodone/ACETAMIN 10-325 MG TAB PO SCH ×4 (09:05→21:24)
[2016-06-14] MEDS: CARISOPRODOL 350 MG TABLET PO SCH ×4 (09:05→21:24)
[2016-06-14] MEDS: LACTOBACILLUS RHAMNOSUS GG 1 CAP CAPSULE PO SCH (21:23)
[2016-06-15] MEDS: ZOLPIDEM TARTRATE 5 MG TABLET PO SCH (01:36)
[2016-06-15] MEDS: ALBUTEROL SULFATE 0.083% 2.5 MG/3 ML VIAL.NEB INH SCH ×6 (02:01→23:16)
[2016-06-15] MEDS: IPRATROPIUM BROM 0.5 MG/2.5 ML VIAL.NEB (ATROVENT) INH SCH ×6 (02:02→23:16)
[2016-06-15 03:42] VITALS: BP_SYST 115
[2016-06-15] MEDS: methylPREDNISolone SOD SUCC/PF 62.5 MG/ML VIAL IVP SCH ×3 (06:16→21:15)
[2016-06-15] MEDS: LEVOTHYROXINE SODIUM 0.05 MG TABLET PO SCH (06:16)
[2016-06-15 07:05] LABS: CALCIUM 8.5 mg/dL (8.4-11.0); CREATININE 0.71 mg/dL (0.55-1.30); POTASSIUM 4.3 mmol/L (3.5-5.1)
[2016-06-15 07:11] LABS: BASOPHILS % (AUTO) 0.4 % (0.0-2.0); EOSINOPHILS % (AUTO) 0.1 % (0.0-4.0); HEMATOCRIT 46.3 % (36-48); HEMOGLOBIN 14.8 g/dL (12.0-16.0); LYMPHOCYTES # (AUTO) 0.4 K/uL (1.0-5.5); LYMPHOCYTES % (AUTO) 3.6 % (20.5-51.5); MEAN CORPUSCULAR HEMOGLOBIN 30 pg (27-31); MEAN CORPUSCULAR HGB CONC 32 % (32-36); MEAN CORPUSCULAR VOLUME 95 fL (79.0-98.0); MONOCYTES # (AUTO) 0.3 K/uL (0.0-1.0); NEUTROPHILS % (AUTO) 92.9 % (40.0-70.0); PLATELET COUNT (AUTO) 229 K/uL (130-430); RED BLOOD CELL COUNT(AUTO) 4.87 MIL/uL (4.2-6.2); RED CELL DISTRIBUTION WIDTH 15.2 % (9.0-15.0); WHITE BLOOD COUNT (AUTO) 11.7 K/uL (4.8-10.8)
[2016-06-15 08:00] VITALS: BP_SYST 127
[2016-06-15] MEDS: DILTIAZEM HCL 180 MG CAP.SR.24H PO SCH (08:39)
[2016-06-15] MEDS: CARISOPRODOL 350 MG TABLET PO SCH ×4 (08:39→21:15)
[2016-06-15] MEDS: QUEtiapine FUMARATE 100 MG TABLET PO SCH ×3 (08:39→21:15)
[2016-06-15] MEDS: LEVOFLOXACIN 250 MG/D5W 50 ML IV SCH (08:39)
[2016-06-15] MEDS: LACTOBACILLUS RHAMNOSUS GG 1 CAP CAPSULE PO SCH ×2 (08:40→21:15)
[2016-06-15] MEDS: LETROZOLE 2.5 MG TABLET (FEMARA) PO SCH (08:40)
[2016-06-15] MEDS: buPROPion HCL 150 MG XL TAB PO SCH (08:40)
[2016-06-15] MEDS: APIXABAN 2.5 MG TABLET PO SCH ×2 (08:40→21:15)
[2016-06-15] MEDS: HYDROcodone/ACETAMIN 10-325 MG TAB PO SCH ×5 (08:40→23:30)
[2016-06-15] MEDS: clonazePAM 0.5 MG TABLET PO SCH ×2 (08:40→21:15)
[2016-06-15] MEDS: 0.45% NACL 1,000 ML IV SCH ×2 (09:46→23:29)
[2016-06-15] MEDS: Effexor XR 37.5 MG PO SCH (10:10)
[2016-06-15 12:03] VITALS: BP_SYST 140
[2016-06-15 16:08] VITALS: BP_SYST 134
[2016-06-15 18:01] VITALS: BP_SYST 134
[2016-06-15 20:00] VITALS: BP_SYST 123
[2016-06-16 00:01] VITALS: BP_SYST 130
[2016-06-16] MEDS: IPRATROPIUM BROM 0.5 MG/2.5 ML VIAL.NEB (ATROVENT) INH SCH ×4 (03:00→16:02)
[2016-06-16] MEDS: ALBUTEROL SULFATE 0.083% 2.5 MG/3 ML VIAL.NEB INH SCH ×4 (03:00→16:01)
[2016-06-16 04:00] VITALS: BP_SYST 124
[2016-06-16] MEDS: LEVOTHYROXINE SODIUM 0.05 MG TABLET PO SCH (06:08)
[2016-06-16] MEDS: methylPREDNISolone SOD SUCC/PF 62.5 MG/ML VIAL IVP SCH ×2 (06:08→13:34)
[2016-06-16 07:23] LABS: BASOPHILS % (AUTO) 0.1 % (0.0-2.0); EOSINOPHILS % (AUTO) 0.1 % (0.0-4.0); HEMATOCRIT 46.6 % (36-48); HEMOGLOBIN 15.3 g/dL (12.0-16.0); LYMPHOCYTES # (AUTO) 0.7 K/uL (1.0-5.5); MEAN CORPUSCULAR HEMOGLOBIN 31 pg (27-31); MEAN CORPUSCULAR HGB CONC 33 % (32-36); MEAN CORPUSCULAR VOLUME 93 fL (79.0-98.0); MONOCYTES # (AUTO) 0.7 K/uL (0.0-1.0); MONOCYTES % (AUTO) 7.1 % (1.7-9.3); NEUTROPHILS # (AUTO) 8.6 K/uL (1.8-7.7); NEUTROPHILS % (AUTO) 85.7 % (40.0-70.0); PLATELET COUNT (AUTO) 236 K/uL (130-430); RED CELL DISTRIBUTION WIDTH 15.2 % (9.0-15.0)
[2016-06-16 07:30] LABS: CALCIUM 8.6 mg/dL (8.4-11.0); CREATININE 0.62 mg/dL (0.55-1.30); POTASSIUM 4.3 mmol/L (3.5-5.1)
[2016-06-16 07:52] VITALS: BP_SYST 129
[2016-06-16] MEDS: CARISOPRODOL 350 MG TABLET PO SCH ×3 (08:37→16:06)
[2016-06-16] MEDS: LACTOBACILLUS RHAMNOSUS GG 1 CAP CAPSULE PO SCH (08:37)
[2016-06-16] MEDS: DILTIAZEM HCL 180 MG CAP.SR.24H PO SCH (08:37)
[2016-06-16] MEDS: APIXABAN 2.5 MG TABLET PO SCH (08:38)
[2016-06-16] MEDS: QUEtiapine FUMARATE 100 MG TABLET PO SCH ×2 (08:38→14:55)
[2016-06-16] MEDS: LETROZOLE 2.5 MG TABLET (FEMARA) PO SCH (08:38)
[2016-06-16] MEDS: clonazePAM 0.5 MG TABLET PO SCH (08:38)
[2016-06-16] MEDS: HYDROcodone/ACETAMIN 10-325 MG TAB PO SCH ×3 (08:38→16:06)
[2016-06-16] MEDS: buPROPion HCL 150 MG XL TAB PO SCH (08:38)
[2016-06-16] MEDS: Effexor XR 37.5 MG PO SCH (08:39)
[2016-06-16] MEDS: LEVOFLOXACIN 250 MG/D5W 50 ML IV SCH (08:45)
[2016-06-16 12:23] VITALS: BP_SYST 111
[2016-06-16] MEDS: 0.45% NACL 1,000 ML IV SCH (12:26)
[2016-06-16 15:11] VITALS: BP_SYST 120
[2016-06-16 16:37] VITALS: BP_SYST 120
== END 2016-06-16 16:55 | disposition home or self-care (01) | DRG 191 ==
LOC: SED 12:36 → STU 13:44 → SMU 06-15 11:10
PROVIDERS: ADMIT Internal Medicine; ATTEND Internal Medicine
DX: J44.1 Chronic obstructive pulmonary disease with (acute) exacerbation (principal); D68.61 Antiphospholipid syndrome; N39.0 Urinary tract infection, site not specified; R06.89 Other abnormalities of breathing; E03.9 Hypothyroidism, unspecified; F17.210 Nicotine dependence, cigarettes, uncomplicated; I10 Essential (primary) hypertension; I48.0 Paroxysmal atrial fibrillation; Z96.641 Presence of right artificial hip joint; Z85.3 Personal history of malignant neoplasm of breast; Z92.3 Personal history of irradiation; Z99.81 Dependence on supplemental oxygen; Z88.8 Allergy status to other drugs, medicaments and biological substances; Z91.048 Other nonmedicinal substance allergy status; Z79.899 Other long term (current) drug therapy; Z90.710 Acquired absence of both cervix and uterus; Z71.6 Tobacco abuse counseling
CPT/HCPCS: 36415; 71010; 80048; 80053; 81000-TC; 83605; 83880; 84443-TC; 84484; 85025; 85610-TC; 87040-TC; 93005; 94640; 94760; 96365; 96375; 99285; J1956; J2930; J3475

== ENCOUNTER 2016-10-11 20:50 | Inpatient (IN) | payer BC, MEDICAID ==
[~2016-10-11] VITALS: Ht 177.8 cm; Wt 72.1 kg
[~2016-10-11 20:50] MED LIST changes: -LEVO50TA8 PO
[2016-10-11 20:56] VITALS: BP_SYST 84
--- NOTE | 2016-10-11 20:57 | NUR ---
In triage patient found to be hypotensive SBP 84 and hypoxic 81% on room air. Patient placed on non-rebreather mask at 10L/min. Patient states that she uses oxygen at home but leaves the tank at home when she is up and about. & tay aware of patient presentation
--- NOTE | 2016-10-11 21:11 | NUR ---
Placed in room 1 . Placed on classroom monitor, blood pressure machine and pulse oximeter. To gown for exam. Side rails up. Report given to Sandie FROST.
--- NOTE | 2016-10-11 21:15 | NUR ---
LUCAS Urbina at bedside examining patient.
--- NOTE | 2016-10-11 21:20 | NUR ---
Patient AOx4, ambulatory, presents to ED with complaint of abcess/bug bite to mid back. Patient states she woke up this morning and noticed it. Patient states site was draining clear fluid. Denies fever/chills.
[2016-10-11] MEDS ORDERED: NACL 0.9% 1,000 ML IV ONE (21:30)
[2016-10-11] MEDS ORDERED: HYDROmorphone 1 MG INJ. 1 MG/ML AMPUL IVP ONE (21:45)
--- NOTE | 2016-10-11 22:00 | NUR ---
# 22 gauge angiocath placed to RFA. Use of asceptic technique. Opsite placed over site. Blood return noted. Blood for lab drawn from site. Flushed with 10 cc of normal saline. No evidence of infiltration noted. Patient tolerated well.
[2016-10-11 22:08] LABS: BASOPHILS # (AUTO) 0.1 K/uL (0.0-0.2); BASOPHILS % (AUTO) 1.6 % (0.0-2.0); EOSINOPHILS # (AUTO) 0.2 K/uL (0.0-0.4); EOSINOPHILS % (AUTO) 2.2 % (0.0-4.0); HEMATOCRIT 40.3 % (36-48); HEMOGLOBIN 13.4 g/dL (12.0-16.0); LYMPHOCYTES # (AUTO) 1.8 K/uL (1.0-5.5); MEAN CORPUSCULAR HEMOGLOBIN 31 pg (27-31); MEAN CORPUSCULAR HGB CONC 33 % (32-36); MEAN CORPUSCULAR VOLUME 94 fL (79.0-98.0); MONOCYTES # (AUTO) 0.7 K/uL (0.0-1.0); MONOCYTES % (AUTO) 8.2 % (1.7-9.3); NEUTROPHILS # (AUTO) 6.3 K/uL (1.8-7.7); PLATELET COUNT (AUTO) 174 K/uL (130-430); RED BLOOD CELL COUNT(AUTO) 4.29 MIL/uL (4.2-6.2); RED CELL DISTRIBUTION WIDTH 15.7 % (9.0-15.0); WHITE BLOOD COUNT (AUTO) 9.1 K/uL (4.8-10.8)
[2016-10-11 22:13] LABS: POTASSIUM 3.6 mmol/L (3.5-5.1); SODIUM SERUM 129 mmol/L (136-145)
[2016-10-11 22:14] LABS: CALCIUM 8.5 mg/dL (8.4-11.0); CHLORIDE 95 mmol/L (98-107); CREATININE 0.69 mg/dL (0.55-1.30); GLUCOSE 115 mg/dL (70-99); UREA NITROGEN, BLOOD 10 mg/dL (8-21)
[2016-10-11 22:19] LABS: ALANINE AMINOTRANSFERASE 19 U/L (12-78); ALBUMIN 3.2 g/dL (3.4-4.8); ASPARTATE AMINOTRANSFERASE 15 U/L (10-37); TOTAL BILIRUBIN 0.2 mg/dL (0.0-1.0)
[2016-10-11 22:30] LABS: ANION GAP < 3 (5-15); GFR AFRICAN AMERICAN 111 mL/min (>90)
--- NOTE | 2016-10-11 22:40 | NUR ---
No adverse reactions noted. Will continue to monitor.
--- NOTE | 2016-10-11 23:00 | NUR ---
Patient BP 94/56 with IV hydration. BP 94/56. O2 sat 95% on 10L non-rebreather. made aware.
[2016-10-11] MEDS ORDERED: IPRATROPIUM/ALBUTEROL SULFATE 3 ML AMPUL.NEB INH ONE (23:15)
[2016-10-11] MEDS ORDERED: methylPREDNISolone SOD SUCC/PF 62.5 MG/ML VIAL IVP ONE (23:15)
[2016-10-12] VITALS (8 sets, daily range): BP systolic 84–151
[2016-10-12] MEDS ORDERED: LEVO50TA77 PO (00:14)
[2016-10-12] MEDS ORDERED: IPRATROPIUM/ALBUTEROL SULFATE 3 ML AMPUL.NEB INH PRN (00:15)
[2016-10-12] MEDS ORDERED: VENL150T PO (00:16)
--- NOTE | 2016-10-12 00:30 | NUR ---
Patient will be admitted to care of Dr. Das. Admitted to Telemetry unit. Will go to room 108C. Belongings list completed. Summary report printed. Report will be given at bedside.
--- NOTE | 2016-10-12 00:57 | NUR ---
Admission Note Received patient from ER with diagnosis of COPD exacerbation. Initial Plan of Care discussed-patient verbalized understanding. Family at bedside. Oriented to room, call light, pain management and safety.
--- NOTE | 2016-10-12 01:14 | NUR ---
INITIAL NOTES: PT is AOX4 ,BREATH NON LABORED,O2 VIA NC 3 L.IV PATENT WITH 22 GAUGE. AT BEDSIDE DISCUSSING MEDICAL PLAN WITH PT .CALL LIGHT WITHIN REACH,SAFETY MEASURES ARE IN PLACE ,WILL CONTINUE TO MONITOR.
[2016-10-12] MEDS ORDERED: AZITHROMYCIN 250 MG in NS 250 ML IV ONE (01:30)
[2016-10-12] MEDS: NACL 0.9% 1,000 ML IV SCH ×2 (02:10→20:25)
--- NOTE | 2016-10-12 02:10 | NUR ---
PATIENT CARE PATIENT WAS GIVEN A SANDWICH AND CRANBERRY JUICE. PATIENT WAS PROVIDED A WARM BLANKET FOR COMFORT.
[2016-10-12] MEDS ORDERED: AZITHROMYCIN 500 MG/VIAL (ZITHROMAX) IV ONE (03:11)
--- NOTE | 2016-10-12 05:43 | NUR ---
COMMUNICATION WITH DR. STEVEN SPOKE WITH DR. STEVEN. STATED TO PUT PATIENT ON BI PAP SETTING 35% FI02, 01/19. STATED TO ORDER ABG'S AT 0800 AND HAVE MORNING NURSE CALL HIM WITH THE RESULTS. WILL NOTIFY MORNING NURSE OF MD INSTRUCTIONS.
[2016-10-12 06:23] LABS: BASOPHILS % (AUTO) 0.2 % (0.0-2.0); EOSINOPHILS % (AUTO) 0.5 % (0.0-4.0); HEMATOCRIT 41.9 % (36-48); HEMOGLOBIN 13.6 g/dL (12.0-16.0); LYMPHOCYTES # (AUTO) 0.4 K/uL (1.0-5.5); LYMPHOCYTES % (AUTO) 5.1 % (20.5-51.5); MEAN CORPUSCULAR HEMOGLOBIN 31 pg (27-31); MEAN CORPUSCULAR HGB CONC 33 % (32-36); MEAN CORPUSCULAR VOLUME 95 fL (79.0-98.0); MONOCYTES # (AUTO) 0.2 K/uL (0.0-1.0); MONOCYTES % (AUTO) 2.3 % (1.7-9.3); NEUTROPHILS % (AUTO) 91.9 % (40.0-70.0); PLATELET COUNT (AUTO) 183 K/uL (130-430); RED BLOOD CELL COUNT(AUTO) 4.41 MIL/uL (4.2-6.2); WHITE BLOOD COUNT (AUTO) 7.6 K/uL (4.8-10.8)
[2016-10-12 06:44] LABS: CALCIUM 8.7 mg/dL (8.4-11.0); CREATININE 0.52 mg/dL (0.55-1.30); POTASSIUM 3.8 mmol/L (3.5-5.1)
[2016-10-12] MEDS: methylPREDNISolone SOD SUCC/PF 62.5 MG/ML VIAL IVP SCH ×3 (06:47→21:38)
[2016-10-12] MEDS: LEVOTHYROXINE SODIUM 0.05 MG TABLET PO SCH (06:52)
--- NOTE | 2016-10-12 06:56 | NUR ---
CLOSING NOTES: PT is on Bi-pap as MD order,adjust the mask to fit the face.Awake and alert,IV patent and intact.SCD on both leg start.pt ambulate to the bathroom and back in bed ,resting comfortable.call light within reach.all needs are met.will endorse to the morning nurse.
--- NOTE | 2016-10-12 07:29 | NUR ---
Nutrition Update Shah[place] Scale 17 noted. Pt admitted for COPD exacerbation. Diet: 2 gm Na BMI: 22.8 kg/m2 RD to follow per nutrition care standards.
--- NOTE | 2016-10-12 07:45 | NUR ---
Initial notes: Patient on bed awake, alert and oriented. On BIPAP witn 35% F1O2 setting. I.V. access patent. Discussed plan of cared. Call light within reach.
--- NOTE | 2016-10-12 08:08 | NUR ---
Closing notes: Patient on bed awake, alert and oriented. On BIPAP witn 35% F1O2 setting. I.V. access patent. Discussed plan of cared. Call light within reach.
[2016-10-12] MEDS: clonazePAM 0.5 MG TABLET PO SCH ×2 (08:39→20:26)
[2016-10-12] MEDS: APIXABAN 2.5 MG TABLET PO SCH ×2 (08:39→20:26)
[2016-10-12] MEDS: QUEtiapine FUMARATE 100 MG TABLET PO SCH ×3 (08:39→20:26)
--- NOTE | 2016-10-12 08:44 | NUR ---
rounds: patient tolerated the Oxygen @ 2l. O2Sat 95%. No distress noted.
[2016-10-12] MEDS: LETROZOLE 2.5 MG TABLET (FEMARA) PO SCH (09:00)
[2016-10-12] MEDS ORDERED: ZOLPIDEM TARTRATE 5 MG TABLET PO PRN (11:15)
[2016-10-12] MEDS ORDERED: DILTIAZEM HCL 180 MG CAP.SR.24H PO ONE (12:15)
[2016-10-12] MEDS: HYDROcodone/ACETAMIN 10-325 MG TAB PO SCH ×3 (12:18→20:26)
[2016-10-12] MEDS: CARISOPRODOL 350 MG TABLET PO SCH ×3 (12:23→21:00)
--- NOTE | 2016-10-12 14:04 | NUR ---
rounds: patient fixing her bed, no distress noted. Due schedule meds given.
--- NOTE | 2016-10-12 15:27 | NUR ---
rounds: patient on bed resting. no distress noted. no shortness of breath.
--- NOTE | 2016-10-12 16:21 | NUR ---
rounds: patient on breathing treatment. no distress noted.
--- NOTE | 2016-10-12 18:56 | NUR ---
Closing notes: Patient on bed. Stable. No SOB. Needs attended. Safety measures in placed. Call light within reach. Report will be given to shift mgr.
--- NOTE | 2016-10-12 19:35 | NUR ---
Initial Notes Pt is A/Ox4, pleasant and cooperative. Pt denies any pain or sob at this time. Pt is on 2L N/C, tolerating well with O2 saturation 96%. Lung sounds auscultated and ronchi heard over bilateral anterior bases. No audible wheezing heard. Pt educated furs salesperson light and asked to call nurse if she became sob, pt agreed to call. Pt educated furs salesperson light and correct back demonstration noted. Plan of care discussed with pt, pt verbalized understanding. Pt refused to wear bi pap tonight, stating she feels ok without it. IV intact and infusing well with NS@50cc/hr. Foam dressing noted to left hip, pt stated she got bit by something but isnt sure what it was, will monitor. Dressing is cdi. Pt assisted to restroom with steady gait. Pt asked to call nurse for assistance to restroom. Safety measures in place, side rails up x3, with bed in lowest, locked position, bed alarm on at all times. All needs met at this time. Call light in reach. Will continue to monitor.
[2016-10-12] MEDS ORDERED: AZITHROMYCIN 250 MG in NS 250 ML IV SCH (21:00)
--- NOTE | 2016-10-13 | NUR ---
Rounds Pt is sleeping comfortably at this time with no acute distress or sob noted. Safety needs met. Bed alarm on. Call light in reach. Will continue to monitor.
[2016-10-13 00:47] VITALS: BP_SYST 103
--- NOTE | 2016-10-13 02:35 | NUR ---
Rounds Pt is sleeping at this time with no acute distress or sob noted. Safety measures in place. Call light in reach. Will continue to monitor.
[2016-10-13] MEDS: IPRATROPIUM/ALBUTEROL SULFATE 3 ML AMPUL.NEB INH SCH ×3 (03:00→11:00)
[2016-10-13 04:29] VITALS: BP_SYST 135
--- NOTE | 2016-10-13 04:35 | NUR ---
PATIENT RESTING: Patient resting quietly. No acute distress noted. Vital signs within normal range.
[2016-10-13] MEDS: methylPREDNISolone SOD SUCC/PF 62.5 MG/ML VIAL IVP SCH (06:15)
[2016-10-13] MEDS: LEVOTHYROXINE SODIUM 0.05 MG TABLET PO SCH (06:15)
--- NOTE | 2016-10-13 06:25 | NUR ---
Closing Notes Pt is sleeping, easily arousable. Scheduled medications given as ordered. No acute distress or sob noted. IV intact. All needs met throughout shift. Will endorse care to am nurse. Call light in reach. Will continue to monitor.
--- NOTE | 2016-10-13 08:00 | NUR ---
AM Initial Notes Pt aaox4 with complaints of back and bilateral upper leg pain. No sob, difficulty breathing or distress noted. O2 via nasal canula @ 2L and monitoring manager in place. IV to right forearm #22g patent with IV fluid infusing. Educated about fall and safety precautions. Encouraged to call for assistance. Call light within reach. Will monitor.
[2016-10-13 08:10] VITALS: BP_SYST 118
[2016-10-13] MEDS: LETROZOLE 2.5 MG TABLET (FEMARA) PO SCH (09:00)
[2016-10-13] MEDS ORDERED: DILTIAZEM HCL 180 MG CAP.SR.24H PO SCH (09:00)
[2016-10-13] MEDS: CARISOPRODOL 350 MG TABLET PO SCH (09:01)
[2016-10-13] MEDS: clonazePAM 0.5 MG TABLET PO SCH (09:02)
[2016-10-13] MEDS: APIXABAN 2.5 MG TABLET PO SCH (09:03)
[2016-10-13] MEDS: HYDROcodone/ACETAMIN 10-325 MG TAB PO SCH (09:03)
[2016-10-13] MEDS: QUEtiapine FUMARATE 100 MG TABLET PO SCH (09:03)
--- NOTE | 2016-10-13 10:00 | NUR ---
Rounds Pt awake resting in bed. No complaints of shortness of breath or difficulty breathing. No distress noted. Pain is tolerable at this time. Encouraged to call for assistance. Call light within reach. Will monitor.
--- NOTE | 2016-10-13 10:05 | NUR ---
Dr. Emily MURPHY doing rounds. Plan of care discussed.
[2016-10-13] MEDS ORDERED: CEPH-568 PO (10:31)
--- NOTE | 2016-10-13 10:41 | NUR ---
Faxed DC order Home to [phone] Filed fax confirmation in binder.
--- NOTE | 2016-10-13 12:32 | NUR ---
Rounds Pt awake still finishing with lunch. No complaints of discomfort. No distress noted. Patient waiting for her ride to pick her up to be discharged home. Encouraged to call for assistance. Will monitor.
[2016-10-13 12:35] VITALS: BP_SYST 105
[2016-10-13 12:46] VITALS: BP_SYST 105
--- NOTE | 2016-10-13 13:20 | NUR ---
Discharge Discharge patient with friend Dawson. Transitional care instructions and handouts explained and given. D/C monitoring analyst. Vital signs stable. D/C IV and dressing applied. Pt left floor via wheelchair to private vehicle. No distress noted.
== END 2016-10-13 13:20 | disposition home or self-care (01) | DRG 191 ==
LOC: SED 20:50 → STU 10-12 00:30
PROVIDERS: ADMIT Internal Medicine; ATTEND Internal Medicine
PROC: 5A09357 Assistance with Respiratory Ventilation, Less than 24 Consecutive Hours, Continuous Positive Airway Pressure (ICD-10-PCS; principal; 2016-10-12)
DX: J44.1 Chronic obstructive pulmonary disease with (acute) exacerbation (principal); D68.61 Antiphospholipid syndrome; J96.11 Chronic respiratory failure with hypoxia; I95.9 Hypotension, unspecified; Z99.81 Dependence on supplemental oxygen; E87.1 Hypo-osmolality and hyponatremia; M54.9 Dorsalgia, unspecified; G89.29 Other chronic pain; I10 Essential (primary) hypertension; E03.9 Hypothyroidism, unspecified; F41.9 Anxiety disorder, unspecified; I48.0 Paroxysmal atrial fibrillation; F32.9 Major depressive disorder, single episode, unspecified; F17.210 Nicotine dependence, cigarettes, uncomplicated; W57.XXXA Bitten or stung by nonvenomous insect and other nonvenomous arthropods, initial encounter; S30.91XA Unspecified superficial injury of lower back and pelvis, initial encounter; Y99.8 Other external cause status; Y92.89 Other specified places as the place of occurrence of the external cause; Y93.89 Activity, other specified; Z88.8 Allergy status to other drugs, medicaments and biological substances; Z91.048 Other nonmedicinal substance allergy status; Z91.19 Patient's noncompliance with other medical treatment and regimen; Z79.01 Long term (current) use of anticoagulants; Z79.899 Other long term (current) drug therapy; Z85.3 Personal history of malignant neoplasm of breast
CPT/HCPCS: 36415; 36600; 71010; 80048; 80053; 82803-TC; 83605; 83880; 84484; 85025; 87040-TC; 93005; 94640; 94660; 94760; J0456; J1170; J2930; J7030; J7050

== ENCOUNTER 2017-01-22 08:52 | Emergency (ER) | payer BC, MEDICAID ==
[~2017-01-22] VITALS: Ht 177.8 cm; Wt 63.5 kg
[2017-01-22 08:52] VITALS: BP_SYST 132
[~2017-01-22 08:52] MED LIST changes: -BUPR-120 PO; +CEPH-568 PO; +LEVO50TA77 PO; +VENL150T PO; -VENL75CA PO
--- NOTE | 2017-01-22 08:52 | NUR ---
Placed in room 02. Placed on satellite project site monitor, blood pressure machine and pulse oximeter. To gown for exam. Side rails up. Report given to MARGOT Alvarado.
--- NOTE | 2017-01-22 08:52 | NUR ---
Seizure precautions in place. Seizure pads applied to gurney. Side rails up.
[2017-01-22] MEDS ORDERED: NACL 0.9% 1,000 ML IV ONE (09:15)
--- NOTE | 2017-01-22 09:15 | NUR ---
ER at bedside examining patient.
[2017-01-22] MEDS ORDERED: ESCI20TA PO (09:19)
--- NOTE | 2017-01-22 09:19 | NUR ---
Medication reconciliation completed with information provided by RX bottles provided by pt. Bag o Meds returned to pt bedside. Any prior medication reconciliation on file was reviewed and corrected.
--- NOTE | 2017-01-22 09:25 | NUR ---
Pt sitting up recieving breathing tx for mild dyspnea. 95% RA
[2017-01-22] MEDS ORDERED: IPRATROPIUM/ALBUTEROL SULFATE 3 ML AMPUL.NEB INH ONE (09:30)
[2017-01-22 09:51] LABS: ANION GAP 4 (5-15); CALCIUM 8.7 mg/dL (8.4-11.0); CHLORIDE 98 mmol/L (98-107); CREATININE 0.59 mg/dL (0.55-1.30); GLUCOSE 86 mg/dL (70-99); POTASSIUM 4.6 mmol/L (3.5-5.1); SODIUM SERUM 137 mmol/L (136-145); UREA NITROGEN, BLOOD 7 mg/dL (8-21)
[2017-01-22 09:53] LABS: BASOPHILS # (AUTO) 0.1 K/uL (0.0-0.2); BASOPHILS % (AUTO) 0.9 % (0.0-2.0); EOSINOPHILS # (AUTO) 0.1 K/uL (0.0-0.4); HEMATOCRIT 50.7 % (36-48); HEMOGLOBIN 15.9 g/dL (12.0-16.0); LYMPHOCYTES # (AUTO) 1.4 K/uL (1.0-5.5); LYMPHOCYTES % (AUTO) 24.3 % (20.5-51.5); MEAN CORPUSCULAR HEMOGLOBIN 30 pg (27-31); MEAN CORPUSCULAR HGB CONC 32 % (32-36); MEAN CORPUSCULAR VOLUME 96 fL (79.0-98.0); MONOCYTES # (AUTO) 0.6 K/uL (0.0-1.0); MONOCYTES % (AUTO) 10.8 % (1.7-9.3); NEUTROPHILS # (AUTO) 3.5 K/uL (1.8-7.7); PLATELET COUNT (AUTO) 237 K/uL (130-430); RED CELL DISTRIBUTION WIDTH 15.5 % (9.0-15.0); WHITE BLOOD COUNT (AUTO) 5.7 K/uL (4.8-10.8)
[2017-01-22 09:55] LABS: ALANINE AMINOTRANSFERASE 20 U/L (12-78); ALBUMIN 3.5 g/dL (3.4-4.8); ASPARTATE AMINOTRANSFERASE 13 U/L (10-37); TOTAL BILIRUBIN 0.4 mg/dL (0.0-1.0)
[2017-01-22 10:00] LABS: ALCOHOL, BLOOD < 3 mg/dL (<10); GFR AFRICAN AMERICAN 132 mL/min (>90)
--- NOTE | 2017-01-22 10:08 | NUR ---
BROUGHT PT BACK FROM CT SCAN DEPT.
[2017-01-22 10:12] LABS: ACETAMINOPHEN 11 ug/mL (1-30)
--- NOTE | 2017-01-22 11:22 | NUR ---
ASSISTED PT TO THE BATHROOM REQUESTED. URINE SAMPLE COLLECTED AND SAMPLE SENT TO LAB FOR TEST.
[2017-01-22 12:06] LABS: BARBITURATE, URINE NEGATIVE (NEG <=200); BENZODIAZEPINE, URINE NEGATIVE (NEG <=150); CANNABINOID, URINE NEGATIVE (NEG <=50); COCAINE, URINE NEGATIVE (NEG <=150); METHAMPHETAMINES SCREEN,URINE NEGATIVE (NEG <=500); OPIATE, URINE POSITIVE (NEG <=100); PHENCYCLIDINE SCREEN,URINE NEGATIVE (NEG <=25); UR TRICYCLIC ANTIDEPRESSANTS NEGATIVE (NEG <=300); URINE AMPHETAMINE NEGATIVE (NEG <=500); URINE METHADONE NEGATIVE (NEG <=200); URINE OXYCODONE SCREEN NEGATIVE (NEG <=100); URINE PROPOXYPHENE SCREEN NEGATIVE (NEG <=300)
[2017-01-22 13:00] VITALS: BP_SYST 119
--- NOTE | 2017-01-22 13:00 | NUR ---
Patient given written and verbal discharge instructions and verbalizes understanding. ER MD discussed with patient the results and treatment provided. Patient in stable condition. ID arm band removed. IV catheter removed intact and dressing applied, no active bleeding. No seizure activity while in ED. No Rx given. Patient educated on pain management and to follow up with PMD. Pain Scale 0/10. Opportunity for questions provided and answered.
== END 2017-01-22 13:00 | disposition home or self-care (01) ==
LOC: SED 08:52
DX: R56.9 Unspecified convulsions (principal); I48.91 Unspecified atrial fibrillation; J44.9 Chronic obstructive pulmonary disease, unspecified; I10 Essential (primary) hypertension; Z85.3 Personal history of malignant neoplasm of breast; Z88.8 Allergy status to other drugs, medicaments and biological substances; Z91.048 Other nonmedicinal substance allergy status
CPT/HCPCS: 36415; 70450; 80053; 80307; 85025; 93005; 94640; 96360; 96361; 99285; G0480; G0481; G0482; J7030

== ENCOUNTER 2017-03-21 09:13 | Emergency (ER) | payer BC, MEDICAID ==
[~2017-03-21] VITALS: Ht 177.8 cm; Wt 60.8 kg
[~2017-03-21 09:13] MED LIST changes: -CEPH-568 PO; +ESCI20TA PO
[2017-03-21 09:28] VITALS: BP_SYST 119
--- NOTE | 2017-03-21 09:40 | NUR ---
Pt placed in bed 3, report endorsed to Chucho FROST
[2017-03-21] MEDS ORDERED: ALBUTEROL SULFATE 0.083% 2.5 MG/3 ML VIAL.NEB INH ONE (09:53)
[2017-03-21] MEDS ORDERED: IPRATROPIUM BROM 0.5 MG/2.5 ML VIAL.NEB (ATROVENT) INH ONE (09:54)
[2017-03-21] MEDS ORDERED: methylPREDNISolone SOD SUCC/PF 62.5 MG/ML VIAL IVP ONE (10:00)
[2017-03-21] MEDS ORDERED: ALBUTEROL SULFATE 0.083% 2.5 MG/3 ML VIAL.NEB IH ONE (10:00)
[2017-03-21] MEDS ORDERED: MAGNESIUM SULFATE 1 GM in NS 50 ML IV ONE (10:00)
[2017-03-21] MEDS ORDERED: IPRATROPIUM BROM 0.5 MG/2.5 ML VIAL.NEB (ATROVENT) IH ONE (10:00)
--- NOTE | 2017-03-21 10:00 | NUR ---
Patient, aao x 4, from home with complaint shortness of breath since this morning. Upon assessment, patient presents as shortness of breath, o2sat 95% on room air and cough. Bilateral wheezing heard on inspiration. She states she has hx of COPD and is on 2L NC at home. Denies nausea, vomitting, chills, fever and chest pain. No other complaints/injuries per patient, none noted.
--- NOTE | 2017-03-21 10:05 | NUR ---
Dr. Thomas at bedside examining patient.
--- NOTE | 2017-03-21 10:12 | NUR ---
RT at bedside administering breathing treatment.
[2017-03-21 10:17] LABS: HEMATOCRIT 56.8 % (36-48); HEMOGLOBIN 17.9 g/dL (12.0-16.0); MEAN CORPUSCULAR HEMOGLOBIN 29 pg (27-31); MEAN CORPUSCULAR HGB CONC 32 % (32-36); MEAN CORPUSCULAR VOLUME 92 fL (79.0-98.0); PLATELET COUNT (AUTO) 250 K/uL (130-430); RED BLOOD CELL COUNT(AUTO) 6.16 MIL/uL (4.2-6.2); RED CELL DISTRIBUTION WIDTH 14.9 % (9.0-15.0); WHITE BLOOD COUNT (AUTO) 9.1 K/uL (4.8-10.8)
[2017-03-21 10:25] LABS: CALCIUM 10.2 mg/dL (8.4-11.0); CREATININE 0.68 mg/dL (0.55-1.30); POTASSIUM 3.7 mmol/L (3.5-5.1)
[2017-03-21 10:30] LABS: ALBUMIN 3.5 g/dL (3.4-4.8); TOTAL BILIRUBIN 0.4 mg/dL (0.0-1.0)
[2017-03-21 10:45] LABS: BASOPHILS % (MANUAL) 0 % (0-2); EOSINOPHILS % (MANUAL) 0 % (0-7); INR 1.2 (0.8-1.2); LYMPHOCYTES % (MANUAL) 15 % (20-46); MONOCYTES % (MANUAL) 15 % (0-11); PROTHROMBIN TIME 12.4 SECS (9.5-12.5)
[2017-03-21 12:50] VITALS: BP_SYST 119
--- NOTE | 2017-03-21 12:50 | NUR ---
Patient given written and verbal discharge instructions and verbalizes understanding. ER MD discussed with patient the results and treatment provided. Patient in stable condition. ID arm band removed. IV removed with no signs of bleeding, swelling, or tenderness. Rx of Zithromax, Prednisone, and Proventil given. Patient educated on pain management and to follow up with PMD. Pain Scale 5/10; tolerable and no interventions required at this time. Opportunity for questions provided and answered.
== END 2017-03-21 12:50 | disposition home or self-care (01) ==
LOC: SED 09:13
DX: J44.1 Chronic obstructive pulmonary disease with (acute) exacerbation (principal); I48.91 Unspecified atrial fibrillation; I10 Essential (primary) hypertension; E07.9 Disorder of thyroid, unspecified; Z85.3 Personal history of malignant neoplasm of breast; Z87.891 Personal history of nicotine dependence
CPT/HCPCS: 36415; 71045; 80053; 82550; 83880; 84484; 85007; 85027; 85379; 85610; 85730; 94640; 96365; 96375; 99285; J2930; J3475

== ENCOUNTER 2017-08-28 13:45 | Inpatient (IN) | payer BC, MEDICAID ==
[~2017-08-28] VITALS: Ht 177.8 cm; Wt 57.2 kg
[2017-08-28 13:45] VITALS: BP_SYST 99
[2017-08-28] MEDS ORDERED: methylPREDNISolone SOD SUCC/PF 62.5 MG/ML VIAL IVP ONE (14:15)
[2017-08-28] MEDS ORDERED: IPRATROPIUM/ALBUTEROL SULFATE 3 ML AMPUL.NEB INH ONE (14:30)
[2017-08-28 14:36] LABS: BASOPHILS # (AUTO) 0.1 K/uL (0.0-0.2); EOSINOPHILS # (AUTO) 0.2 K/uL (0.0-0.4)
[2017-08-28 14:41] LABS: CALCIUM 8.5 mg/dL (8.4-11.0); CREATININE 0.62 mg/dL (0.55-1.30); POTASSIUM 4.4 mmol/L (3.5-5.1)
[2017-08-28 14:42] LABS: BASOPHILS % (AUTO) 1.6 % (0.0-2.0); HEMATOCRIT 47.2 % (36-48); HEMOGLOBIN 15.6 g/dL (12.0-16.0); LYMPHOCYTES # (AUTO) 2.1 K/uL (1.0-5.5); LYMPHOCYTES % (AUTO) 31.9 % (20.5-51.5); MEAN CORPUSCULAR HEMOGLOBIN 30 pg (27-31); MEAN CORPUSCULAR HGB CONC 33 % (32-36); MEAN CORPUSCULAR VOLUME 92 fL (79.0-98.0); MONOCYTES # (AUTO) 0.7 K/uL (0.0-1.0); MONOCYTES % (AUTO) 10.5 % (1.7-9.3); NEUTROPHILS # (AUTO) 3.4 K/uL (1.8-7.7); PLATELET COUNT (AUTO) 185 K/uL (130-430); RED BLOOD CELL COUNT(AUTO) 5.14 MIL/uL (4.2-6.2); RED CELL DISTRIBUTION WIDTH 19.8 % (9.0-15.0); WHITE BLOOD COUNT (AUTO) 6.5 K/uL (4.8-10.8)
[2017-08-28 14:46] LABS: ALBUMIN 3.3 g/dL (3.4-4.8); TOTAL BILIRUBIN 0.3 mg/dL (0.0-1.0)
[2017-08-28 15:32] LABS: BILIRUBIN,URINE NEGATIVE (NEGATIVE); BLOOD, URINE NEGATIVE (NEGATIVE); CLARITY/URINE CLEAR (CLEAR); COLOR,URINE YELLOW (YELLOW); GLUCOSE,URINE NEGATIVE (NEGATIVE); KETONES,URINE NEGATIVE (NEGATIVE); LEUKOCYTE ESTERASE ,URINE NEGATIVE (NEGATIVE); NITRITE, URINE NEGATIVE (NEGATIVE); PROTEIN URINE NEGATIVE (NEGATIVE); UROBILINOGEN,URINE 0.2 (0.2-1.0)
[2017-08-28] MEDS ORDERED: DULO20CA PO (15:39)
[2017-08-28] MEDS ORDERED: DULO60CA41 PO (15:39)
[2017-08-28] MEDS ORDERED: FLUT1DIS3 INH (15:39)
[2017-08-28] MEDS ORDERED: SOM350 PO (15:39)
[2017-08-28] MEDS ORDERED: DILT180C69 PO (15:39)
[2017-08-28] MEDS ORDERED: LETR2.5T3 PO (15:39)
[2017-08-28] MEDS ORDERED: APIX5TAB PO (15:39)
[2017-08-28] MEDS ORDERED: CLON0.5T4 PO (15:39)
[2017-08-28 15:42] LABS: BARBITURATE, URINE NEGATIVE (NEG <=200); BENZODIAZEPINE, URINE NEGATIVE (NEG <=150); CANNABINOID, URINE NEGATIVE (NEG <=50); COCAINE, URINE NEGATIVE (NEG <=150); METHAMPHETAMINES SCREEN,URINE NEGATIVE (NEG <=500); PHENCYCLIDINE SCREEN,URINE NEGATIVE (NEG <=25); URINE AMPHETAMINE NEGATIVE (NEG <=500); URINE METHADONE NEGATIVE (NEG <=200)
[2017-08-28 15:43] LABS: OPIATE, URINE POSITIVE (NEG <=100); UR TRICYCLIC ANTIDEPRESSANTS POSITIVE (NEG <=300); URINE OXYCODONE SCREEN NEGATIVE (NEG <=100); URINE PROPOXYPHENE SCREEN NEGATIVE (NEG <=300)
[2017-08-28] MEDS ORDERED: IPRATROPIUM BROM 0.5 MG/2.5 ML VIAL.NEB (ATROVENT) INH ONE (16:00)
[2017-08-28] MEDS ORDERED: methylPREDNISolone SOD SUCC 40 MG/ML VIAL IVP ONE (16:00)
[2017-08-28] MEDS ORDERED: NACL 0.9% 1,000 ML IV ONE (16:00)
[2017-08-28] MEDS ORDERED: ALBUTEROL SULFATE 0.083% 2.5 MG/3 ML VIAL.NEB INH ONE (16:00)
[2017-08-28] MEDS ORDERED: ACETAMINOPHEN 325 MG TABLET PO PRN (16:00)
[2017-08-28 16:23] VITALS: BP_SYST 113
[2017-08-28] MEDS: NACL 0.9% 1,000 ML IV SCH (16:35)
[2017-08-28 16:50] VITALS: BP_SYST 113
[2017-08-28 16:56] VITALS: BP_SYST 113
[2017-08-28] MEDS ORDERED: ZOLPIDEM TARTRATE 5 MG TABLET PO SCH (18:15)
[2017-08-28] MEDS ORDERED: HYDROcodone/ACETAMIN 10-325 MG TAB PO SCH (18:15)
[2017-08-28] MEDS ORDERED: ONDANSETRON HCL 4 MG/2 ML VIAL IVP PRN (18:30)
[2017-08-28 19:55] VITALS: BP_SYST 112
[2017-08-28] MEDS: IPRATROPIUM BROM 0.5 MG/2.5 ML VIAL.NEB (ATROVENT) INH SCH ×2 (20:15→23:40)
[2017-08-28] MEDS: ALBUTEROL SULFATE 0.083% 2.5 MG/3 ML VIAL.NEB INH SCH ×2 (20:15→23:39)
[2017-08-28] MEDS: methylPREDNISolone SOD SUCC 40 MG/ML VIAL IVP SCH (21:24)
[2017-08-28] MEDS: clonazePAM 0.5 MG TABLET PO SCH (21:24)
[2017-08-28] MEDS: QUEtiapine FUMARATE 100 MG TABLET PO SCH (21:24)
[2017-08-28] MEDS ORDERED: cefTRIAXone 1 GM IVPB PREMIX 50 ML IV ONE (23:36)
[2017-08-28] MEDS: cefTRIAXone 1 GM IVPB PREMIX 50 ML IV SCH (23:36)
[2017-08-29 00:10] VITALS: BP_SYST 102
[2017-08-29] MEDS: NACL 0.9% 1,000 ML IV SCH ×3 (02:57→22:17)
[2017-08-29] MEDS: IPRATROPIUM BROM 0.5 MG/2.5 ML VIAL.NEB (ATROVENT) INH SCH ×6 (03:42→23:06)
[2017-08-29] MEDS: ALBUTEROL SULFATE 0.083% 2.5 MG/3 ML VIAL.NEB INH SCH ×6 (03:42→23:06)
[2017-08-29] MEDS: HYDROcodone/ACETAMIN 10-325 MG TAB PO PRN ×2 (04:05→13:03)
[2017-08-29 05:00] LABS: CALCIUM 8.4 mg/dL (8.4-11.0); CREATININE 0.59 mg/dL (0.55-1.30)
[2017-08-29 05:09] LABS: ALBUMIN 3.1 g/dL (3.4-4.8); TOTAL BILIRUBIN 0.3 mg/dL (0.0-1.0)
[2017-08-29 05:14] LABS: HEMATOCRIT 46.7 % (36-48); HEMOGLOBIN 15.1 g/dL (12.0-16.0); MEAN CORPUSCULAR HEMOGLOBIN 30 pg (27-31); MEAN CORPUSCULAR HGB CONC 33 % (32-36); MEAN CORPUSCULAR VOLUME 91 fL (79.0-98.0); PLATELET COUNT (AUTO) 184 K/uL (130-430); RED BLOOD CELL COUNT(AUTO) 5.11 MIL/uL (4.2-6.2); RED CELL DISTRIBUTION WIDTH 19.1 % (9.0-15.0); WHITE BLOOD COUNT (AUTO) 3.5 K/uL (4.8-10.8)
[2017-08-29] MEDS: LEVOTHYROXINE SODIUM 0.05 MG TABLET PO SCH (06:21)
[2017-08-29] MEDS: methylPREDNISolone SOD SUCC 40 MG/ML VIAL IVP SCH ×3 (06:21→22:16)
[2017-08-29 08:00] VITALS: BP_SYST 123
[2017-08-29] MEDS: DULoxetine HCL 30 MG CAPSULE.DR (CYMBALTA) PO SCH (09:27)
[2017-08-29] MEDS: clonazePAM 0.5 MG TABLET PO SCH ×3 (09:28→20:42)
[2017-08-29] MEDS: CARISOPRODOL 350 MG TABLET PO SCH (09:29)
[2017-08-29] MEDS: QUEtiapine FUMARATE 100 MG TABLET PO SCH ×3 (09:29→20:42)
[2017-08-29] MEDS: LETROZOLE 2.5 MG TABLET (FEMARA) PO SCH (09:30)
[2017-08-29] MEDS: DILTIAZEM HCL 180 MG CAP.SR.24H PO SCH (09:40)
[2017-08-29] MEDS: APIXABAN 2.5 MG TABLET PO SCH ×2 (09:46→20:47)
[2017-08-29 09:57] LABS: ATYPICAL LYMPHOCYTES % 0 % (0-0); BAND % (MANUAL) 0 % (0-6); BASOPHILS % (MANUAL) 0 % (0-2); EOSINOPHILS % (MANUAL) 0 % (0-7); LYMPHOCYTES % (MANUAL) 13 % (20-46); MONOCYTES % (MANUAL) 1 % (0-11)
[2017-08-29 12:00] VITALS: BP_SYST 131
[2017-08-29 16:00] VITALS: BP_SYST 139
[2017-08-29 19:40] VITALS: BP_SYST 122
[2017-08-29] MEDS: cefTRIAXone 1 GM IVPB PREMIX 50 ML IV SCH (22:16)
[2017-08-30 02:00] VITALS: BP_SYST 112
[2017-08-30] MEDS: ALBUTEROL SULFATE 0.083% 2.5 MG/3 ML VIAL.NEB INH SCH ×2 (04:29→08:10)
[2017-08-30] MEDS: IPRATROPIUM BROM 0.5 MG/2.5 ML VIAL.NEB (ATROVENT) INH SCH ×2 (04:29→08:10)
[2017-08-30] MEDS: methylPREDNISolone SOD SUCC 40 MG/ML VIAL IVP SCH (06:40)
[2017-08-30] MEDS: LEVOTHYROXINE SODIUM 0.05 MG TABLET PO SCH (06:40)
[2017-08-30 07:45] VITALS: BP_SYST 128
[2017-08-30 07:55] LABS: EOSINOPHILS % (AUTO) 0.1 % (0.0-4.0); HEMATOCRIT 44.7 % (36-48); HEMOGLOBIN 14.3 g/dL (12.0-16.0); LYMPHOCYTES # (AUTO) 0.6 K/uL (1.0-5.5); MEAN CORPUSCULAR HEMOGLOBIN 30 pg (27-31); MEAN CORPUSCULAR HGB CONC 32 % (32-36); MEAN CORPUSCULAR VOLUME 92 fL (79.0-98.0); MONOCYTES # (AUTO) 0.3 K/uL (0.0-1.0); MONOCYTES % (AUTO) 3.7 % (1.7-9.3); NEUTROPHILS # (AUTO) 6.1 K/uL (1.8-7.7); NEUTROPHILS % (AUTO) 88.2 % (40.0-70.0); PLATELET COUNT (AUTO) 174 K/uL (130-430); RED BLOOD CELL COUNT(AUTO) 4.85 MIL/uL (4.2-6.2); RED CELL DISTRIBUTION WIDTH 19.6 % (9.0-15.0)
[2017-08-30 08:13] LABS: CREATININE 0.56 mg/dL (0.55-1.30); POTASSIUM 4.5 mmol/L (3.5-5.1)
[2017-08-30 08:14] LABS: TOTAL BILIRUBIN 0.3 mg/dL (0.0-1.0)
[2017-08-30] MEDS: DULoxetine HCL 30 MG CAPSULE.DR (CYMBALTA) PO SCH (08:30)
[2017-08-30] MEDS: QUEtiapine FUMARATE 100 MG TABLET PO SCH (08:31)
[2017-08-30] MEDS: CARISOPRODOL 350 MG TABLET PO SCH (08:31)
[2017-08-30] MEDS: NACL 0.9% 1,000 ML IV SCH (08:32)
[2017-08-30] MEDS: DILTIAZEM HCL 180 MG CAP.SR.24H PO SCH (08:34)
[2017-08-30] MEDS: APIXABAN 2.5 MG TABLET PO SCH (08:36)
[2017-08-30] MEDS: LETROZOLE 2.5 MG TABLET (FEMARA) PO SCH (08:40)
[2017-08-30] MEDS: clonazePAM 0.5 MG TABLET PO SCH (08:42)
[2017-08-30] MEDS ORDERED: LEVO500T20 PO (11:17)
[2017-08-30] MEDS ORDERED: PRED20TA PO (11:17)
[2017-08-30 12:36] VITALS: BP_SYST 113
[2017-08-30 13:03] VITALS: BP_SYST 113
[2017-08-30] MEDS ORDERED: PREDNISONE 20 MG TABLET PO SCH (21:00)
== END 2017-08-30 14:05 | disposition home or self-care (01) | DRG 189 ==
LOC: SED 13:45 → STU 15:47
PROVIDERS: ADMIT Internal Medicine; ATTEND Internal Medicine
DX: J96.21 Acute and chronic respiratory failure with hypoxia (principal); J44.1 Chronic obstructive pulmonary disease with (acute) exacerbation; D68.61 Antiphospholipid syndrome; G89.29 Other chronic pain; I10 Essential (primary) hypertension; I95.9 Hypotension, unspecified; E03.9 Hypothyroidism, unspecified; I48.2 Chronic atrial fibrillation; E04.1 Nontoxic single thyroid nodule; I77.819 Aortic ectasia, unspecified site; Z96.641 Presence of right artificial hip joint; Z96.611 Presence of right artificial shoulder joint; Z96.621 Presence of right artificial elbow joint; F17.210 Nicotine dependence, cigarettes, uncomplicated; Z99.81 Dependence on supplemental oxygen; Z88.8 Allergy status to other drugs, medicaments and biological substances; Z91.048 Other nonmedicinal substance allergy status; Z90.710 Acquired absence of both cervix and uterus; Z79.899 Other long term (current) drug therapy; Z85.3 Personal history of malignant neoplasm of breast
CPT/HCPCS: 36415; 36600; 71045; 71250-TC; 80053; 80307; 81003; 82103; 82803-TC; 83880; 85007; 85025; 85027; 87070-TC; 87205-TC; 93306; 94640; 94760; 96374; 99285; J0696; J1030; J2930; J7030; J7613; J7620

== ENCOUNTER 2017-10-31 07:39 | Inpatient (IN) | payer BC, MEDICAID ==
[~2017-10-31] VITALS: Ht 177.8 cm; Wt 54.4 kg
[~2017-10-31 07:39] MED LIST changes: -CARI350T27 PO; +CLON0.5T12 PO; -CLON0.5T4 PO; +DILT180C69 PO; +DULO20CA PO; +DULO60CA41 PO; -ESCI20TA PO; +FEM2.5 PO; -LETR2.5T6 PO; +LEVO500T20 PO; -LEVO50TA77 PO; +PRED20TA PO; +SOM350 PO; +SYN50 PO; -VENL150T PO
[2017-10-31 07:42] VITALS: BP_SYST 149
[2017-10-31] MEDS ORDERED: NACL 0.9% 1,000 ML IV ONE (08:02)
[2017-10-31] MEDS ORDERED: IPRATROPIUM/ALBUTEROL SULFATE 3 ML AMPUL.NEB ONE (08:06)
[2017-10-31] MEDS ORDERED: ASPIRIN 81 MG TAB.CHEW PO ONE (08:15)
[2017-10-31] MEDS ORDERED: IPRATROPIUM BROM 0.5 MG/2.5 ML VIAL.NEB (ATROVENT) IH ONE ×2 (08:15→10:00)
[2017-10-31] MEDS ORDERED: MAGNESIUM SULFATE 1 GM in NS 50 ML IV ONE (08:15)
[2017-10-31] MEDS ORDERED: ALBUTEROL SULFATE 0.083% 2.5 MG/3 ML VIAL.NEB IH ONE ×2 (08:15→10:00)
[2017-10-31] MEDS ORDERED: methylPREDNISolone SOD SUCC/PF 62.5 MG/ML VIAL IVP ONE (08:15)
[2017-10-31] MEDS ORDERED: IPRATROPIUM/ALBUTEROL SULFATE 3 ML AMPUL.NEB INH ONE (08:30)
[2017-10-31 08:38] LABS: BASOPHILS # (AUTO) 0.1 K/uL (0.0-0.2); BASOPHILS % (AUTO) 0.5 % (0.0-2.0); EOSINOPHILS # (AUTO) 0.1 K/uL (0.0-0.4); EOSINOPHILS % (AUTO) 0.5 % (0.0-4.0); HEMATOCRIT 49.5 % (36-48); HEMOGLOBIN 15.7 g/dL (12.0-16.0); LYMPHOCYTES # (AUTO) 1.4 K/uL (1.0-5.5); LYMPHOCYTES % (AUTO) 10.4 % (20.5-51.5); MEAN CORPUSCULAR HEMOGLOBIN 31 pg (27-31); MEAN CORPUSCULAR HGB CONC 32 % (32-36); MEAN CORPUSCULAR VOLUME 99 fL (79.0-98.0); MONOCYTES # (AUTO) 1.3 K/uL (0.0-1.0); MONOCYTES % (AUTO) 9.9 % (1.7-9.3); NEUTROPHILS # (AUTO) 10.2 K/uL (1.8-7.7); NEUTROPHILS % (AUTO) 78.7 % (40.0-70.0); PLATELET COUNT (AUTO) 218 K/uL (130-430); RED BLOOD CELL COUNT(AUTO) 5.02 MIL/uL (4.2-6.2); RED CELL DISTRIBUTION WIDTH 15.4 % (9.0-15.0); WHITE BLOOD COUNT (AUTO) 13.1 K/uL (4.8-10.8)
[2017-10-31 08:42] LABS: CALCIUM 9.5 mg/dL (8.4-11.0); CREATININE 0.59 mg/dL (0.55-1.30); POTASSIUM 4.9 mmol/L (3.5-5.1)
[2017-10-31 08:45] LABS: PROTHROMBIN TIME 9.8 SECS (9.5-12.5)
[2017-10-31 08:47] LABS: ALBUMIN 3.2 g/dL (3.4-4.8); TOTAL BILIRUBIN 0.5 mg/dL (0.0-1.0)
[2017-10-31] MEDS ORDERED: MAGNESIUM SULFATE 1 GM/2 ML VIAL ONE (08:55)
[2017-10-31] MEDS ORDERED: AZITHROMYCIN 250 MG TABLET PO ONE (09:15)
[2017-10-31] MEDS ORDERED: cefTRIAXone 1 GM IVPB PREMIX 50 ML IV ONE (09:15)
[2017-10-31] MEDS ORDERED: MORPHINE 4 MG/ML INJ. SYRINGE IVP ONE (10:00)
[2017-10-31] MEDS ORDERED: ONDANSETRON HCL 4 MG/2 ML VIAL IVP PRN (10:30)
[2017-10-31] MEDS ORDERED: ACETAMINOPHEN 325 MG TABLET PO PRN (10:30)
[2017-10-31 11:57] VITALS: BP_SYST 131
[2017-10-31 12:00] VITALS: BP_SYST 131; BP_SYST 136
[2017-10-31] MEDS: methylPREDNISolone SOD SUCC 40 MG/ML VIAL IVP SCH ×3 (13:06→23:30)
[2017-10-31] MEDS: IPRATROPIUM/ALBUTEROL SULFATE 3 ML AMPUL.NEB INH PRN ×2 (15:37→19:37)
[2017-10-31 16:00] VITALS: BP_SYST 156
[2017-10-31] MEDS: MORPHINE 2 MG/ML INJ. SYRINGE IVP PRN ×2 (16:48→23:30)
[2017-10-31] MEDS ORDERED: clonazePAM 0.5 MG TABLET PO PRN (17:45)
[2017-10-31] MEDS: MONTELUKAST 10 MG TABLET PO SCH (18:29)
[2017-10-31 20:03] VITALS: BP_SYST 146
[2017-10-31] MEDS: CARISOPRODOL 350 MG TABLET PO SCH (20:55)
[2017-10-31] MEDS: ZOLPIDEM TARTRATE 5 MG TABLET PO PRN (20:55)
[2017-10-31] MEDS: QUEtiapine FUMARATE 100 MG TABLET PO SCH (20:55)
[2017-10-31] MEDS: APIXABAN 2.5 MG TABLET PO SCH (20:56)
[2017-10-31] MEDS ORDERED: FLUTICASONE/VILANTEROL 1 EACH BLST.W.DEV INH SCH (21:00)
[2017-11-01 00:52] VITALS: BP_SYST 128
[2017-11-01] MEDS: methylPREDNISolone SOD SUCC 40 MG/ML VIAL IVP SCH ×4 (06:02→23:56)
[2017-11-01] MEDS: LEVOTHYROXINE SODIUM 0.05 MG TABLET PO SCH (06:02)
[2017-11-01 07:34] LABS: BASOPHILS % (AUTO) 0.2 % (0.0-2.0); EOSINOPHILS % (AUTO) 0.1 % (0.0-4.0); HEMATOCRIT 46.3 % (36-48); HEMOGLOBIN 14.8 g/dL (12.0-16.0); LYMPHOCYTES # (AUTO) 0.6 K/uL (1.0-5.5); LYMPHOCYTES % (AUTO) 6.7 % (20.5-51.5); MEAN CORPUSCULAR HEMOGLOBIN 32 pg (27-31); MEAN CORPUSCULAR HGB CONC 32 % (32-36); MEAN CORPUSCULAR VOLUME 99 fL (79.0-98.0); MONOCYTES # (AUTO) 0.5 K/uL (0.0-1.0); MONOCYTES % (AUTO) 5.9 % (1.7-9.3); NEUTROPHILS # (AUTO) 7.2 K/uL (1.8-7.7); NEUTROPHILS % (AUTO) 87.1 % (40.0-70.0); PLATELET COUNT (AUTO) 238 K/uL (130-430); RED BLOOD CELL COUNT(AUTO) 4.69 MIL/uL (4.2-6.2); WHITE BLOOD COUNT (AUTO) 8.3 K/uL (4.8-10.8)
[2017-11-01] MEDS: CARISOPRODOL 350 MG TABLET PO SCH ×4 (09:00→21:00)
[2017-11-01 09:02] VITALS: BP_SYST 142
[2017-11-01] MEDS: FLUTICASONE/VILANTEROL 1 EACH BLST.W.DEV INH SCH ×2 (09:05→17:47)
[2017-11-01] MEDS: cefTRIAXone 1 GM IVPB PREMIX 50 ML IV SCH (09:06)
[2017-11-01] MEDS: DULoxetine HCL 30 MG CAPSULE.DR (CYMBALTA) PO SCH (09:07)
[2017-11-01] MEDS: DILTIAZEM HCL 180 MG CAP.SR.24H PO SCH (09:07)
[2017-11-01] MEDS: APIXABAN 2.5 MG TABLET PO SCH ×2 (09:09→21:22)
[2017-11-01] MEDS: QUEtiapine FUMARATE 100 MG TABLET PO SCH ×2 (09:10→21:00)
[2017-11-01] MEDS: LETROZOLE 2.5 MG TABLET (FEMARA) PO SCH (09:14)
[2017-11-01] MEDS: AZITHROMYCIN 500 MG in NS 250 ML IV SCH (09:18)
[2017-11-01] MEDS: MORPHINE 2 MG/ML INJ. SYRINGE IVP PRN ×3 (09:27→21:16)
[2017-11-01] MEDS ORDERED: guaiFENesin ER 600 MG TAB PO ONE (10:30)
[2017-11-01] MEDS: HYDROcodone/ACETAMIN 10-325 MG TAB PO PRN ×3 (11:06→22:54)
[2017-11-01 11:53] VITALS: BP_SYST 136
[2017-11-01 16:00] VITALS: BP_SYST 134
[2017-11-01] MEDS: MONTELUKAST 10 MG TABLET PO SCH (17:41)
[2017-11-01 20:00] VITALS: BP_SYST 146
[2017-11-01] MEDS: guaiFENesin ER 600 MG TAB PO SCH (21:17)
[2017-11-01 23:35] VITALS: BP_SYST 153
[2017-11-01] MEDS: ZOLPIDEM TARTRATE 5 MG TABLET PO PRN (23:55)
[2017-11-02] MEDS: FLUTICASONE/VILANTEROL 1 EACH BLST.W.DEV INH SCH ×2 (06:04→19:00)
[2017-11-02] MEDS: LEVOTHYROXINE SODIUM 0.05 MG TABLET PO SCH (06:05)
[2017-11-02] MEDS: methylPREDNISolone SOD SUCC 40 MG/ML VIAL IVP SCH ×4 (06:05→23:04)
[2017-11-02] MEDS: MORPHINE 2 MG/ML INJ. SYRINGE IVP PRN ×3 (06:13→22:57)
[2017-11-02 08:00] VITALS: BP_SYST 151
[2017-11-02] MEDS: cefTRIAXone 1 GM IVPB PREMIX 50 ML IV SCH (08:57)
[2017-11-02] MEDS: guaiFENesin ER 600 MG TAB PO SCH ×2 (08:58→20:49)
[2017-11-02] MEDS: LETROZOLE 2.5 MG TABLET (FEMARA) PO SCH (08:58)
[2017-11-02] MEDS: CARISOPRODOL 350 MG TABLET PO SCH ×5 (08:58→20:50)
[2017-11-02] MEDS: QUEtiapine FUMARATE 100 MG TABLET PO SCH ×2 (08:59→20:48)
[2017-11-02] MEDS: DULoxetine HCL 30 MG CAPSULE.DR (CYMBALTA) PO SCH (08:59)
[2017-11-02] MEDS: DILTIAZEM HCL 180 MG CAP.SR.24H PO SCH (08:59)
[2017-11-02] MEDS: IPRATROPIUM/ALBUTEROL SULFATE 3 ML AMPUL.NEB INH PRN (09:00)
[2017-11-02] MEDS ORDERED: IPRATROPIUM BROM 0.5 MG/2.5 ML VIAL.NEB (ATROVENT) INH PRN (09:00)
[2017-11-02] MEDS: HYDROcodone/ACETAMIN 10-325 MG TAB PO PRN ×2 (09:00→17:23)
[2017-11-02] MEDS ORDERED: ALBUTEROL SULFATE 0.083% 2.5 MG/3 ML VIAL.NEB INH PRN (09:00)
[2017-11-02] MEDS: APIXABAN 2.5 MG TABLET PO SCH ×2 (09:01→20:49)
[2017-11-02] MEDS: AZITHROMYCIN 500 MG in NS 250 ML IV SCH (10:29)
[2017-11-02 11:20] VITALS: BP_SYST 111
[2017-11-02] MEDS: ALBUTEROL SULFATE 0.083% 2.5 MG/3 ML VIAL.NEB INH SCH ×4 (11:33→23:00)
[2017-11-02] MEDS: IPRATROPIUM BROM 0.5 MG/2.5 ML VIAL.NEB (ATROVENT) INH SCH ×3 (11:33→23:00)
[2017-11-02 15:11] VITALS: BP_SYST 104
[2017-11-02] MEDS: MONTELUKAST 10 MG TABLET PO SCH (17:22)
[2017-11-02 20:00] VITALS: BP_SYST 138
[2017-11-02] MEDS: ZOLPIDEM TARTRATE 5 MG TABLET PO PRN (20:50)
[2017-11-02 23:15] VITALS: BP_SYST 109
[2017-11-03] MEDS: MORPHINE 2 MG/ML INJ. SYRINGE IVP PRN ×2 (02:16→06:41)
[2017-11-03] MEDS: ALBUTEROL SULFATE 0.083% 2.5 MG/3 ML VIAL.NEB INH SCH ×3 (03:00→11:00)
[2017-11-03] MEDS: IPRATROPIUM BROM 0.5 MG/2.5 ML VIAL.NEB (ATROVENT) INH SCH ×3 (03:00→11:00)
[2017-11-03] MEDS: HYDROcodone/ACETAMIN 10-325 MG TAB PO PRN ×2 (04:46→08:53)
[2017-11-03] MEDS: LEVOTHYROXINE SODIUM 0.05 MG TABLET PO SCH (06:34)
[2017-11-03] MEDS: methylPREDNISolone SOD SUCC 40 MG/ML VIAL IVP SCH ×2 (06:34→11:27)
[2017-11-03 08:00] VITALS: BP_SYST 127
[2017-11-03] MEDS: FLUTICASONE/VILANTEROL 1 EACH BLST.W.DEV INH SCH (08:50)
[2017-11-03] MEDS: cefTRIAXone 1 GM IVPB PREMIX 50 ML IV SCH (08:50)
[2017-11-03] MEDS: LETROZOLE 2.5 MG TABLET (FEMARA) PO SCH (08:51)
[2017-11-03] MEDS: guaiFENesin ER 600 MG TAB PO SCH (08:53)
[2017-11-03] MEDS: QUEtiapine FUMARATE 100 MG TABLET PO SCH (08:54)
[2017-11-03] MEDS: DULoxetine HCL 30 MG CAPSULE.DR (CYMBALTA) PO SCH (08:54)
[2017-11-03] MEDS: DILTIAZEM HCL 180 MG CAP.SR.24H PO SCH (08:54)
[2017-11-03] MEDS: CARISOPRODOL 350 MG TABLET PO SCH ×2 (08:55→13:00)
[2017-11-03] MEDS: APIXABAN 2.5 MG TABLET PO SCH (08:56)
[2017-11-03] MEDS: AZITHROMYCIN 500 MG in NS 250 ML IV SCH (10:19)
[2017-11-03] MEDS ORDERED: zpack PO (10:29)
[2017-11-03] MEDS ORDERED: MEDROL PACK PO (10:29)
[2017-11-03 11:56] VITALS: BP_SYST 101
[2017-11-03 12:04] VITALS: BP_SYST 97
== END 2017-11-03 13:05 | disposition home or self-care (01) | DRG 189 ==
LOC: SED 07:39 → STU 10:27
PROVIDERS: ADMIT Internal Medicine; ATTEND Internal Medicine
DX: J96.21 Acute and chronic respiratory failure with hypoxia (principal); J44.1 Chronic obstructive pulmonary disease with (acute) exacerbation; D68.61 Antiphospholipid syndrome; E87.2 Acidosis; J96.22 Acute and chronic respiratory failure with hypercapnia; E03.9 Hypothyroidism, unspecified; I48.91 Unspecified atrial fibrillation; G89.29 Other chronic pain; F32.9 Major depressive disorder, single episode, unspecified; F41.9 Anxiety disorder, unspecified; M50.20 Other cervical disc displacement, unspecified cervical region; I10 Essential (primary) hypertension; M54.9 Dorsalgia, unspecified; F17.200 Nicotine dependence, unspecified, uncomplicated; Z88.8 Allergy status to other drugs, medicaments and biological substances; Z91.048 Other nonmedicinal substance allergy status; Z79.899 Other long term (current) drug therapy; Z79.2 Long term (current) use of antibiotics; Z82.5 Family history of asthma and other chronic lower respiratory diseases; Z82.49 Family history of ischemic heart disease and other diseases of the circulatory system; Z91.19 Patient's noncompliance with other medical treatment and regimen; Z71.6 Tobacco abuse counseling; Z85.3 Personal history of malignant neoplasm of breast
CPT/HCPCS: 36415; 36600; 71045; 80053; 82550-TC; 82803-TC; 83605; 83690-TC; 84484; 85025; 85610-TC; 85730-TC; 87040-TC; 93005; 94640; 94760; 96365; 96375; 99291; 99292; J0456; J0696; J1030; J2270; J2930; J3475; J7030; J7050; J7613; J7620; Q0144

== ENCOUNTER 2018-04-17 23:07 | Emergency (ER) | payer BC, MEDICAID ==
[~2018-04-17] VITALS: Ht 177.8 cm; Wt 58.1 kg
[~2018-04-17 23:07] MED LIST changes: -DILT180C69 PO; -DULO20CA PO; -LEVO500T20 PO; +MEDROL PACK PO; -PRED20TA PO; +zpack PO
[2018-04-17 23:15] VITALS: BP_SYST 134
[2018-04-18] MEDS ORDERED: DEXAMETHASONE SOD PHOSPHATE 10 MG/ML VIAL IVP ONE (00:45)
[2018-04-18] MEDS ORDERED: cefTRIAXone 1 GM in D5W 50 ML IV ONE (00:45)
[2018-04-18] MEDS ORDERED: IPRATROPIUM/ALBUTEROL SULFATE 3 ML AMPUL.NEB (DUONEB) INH ONE ×2 (00:45→02:45)
[2018-04-18] MEDS ORDERED: AZITHROMYCIN 500 MG in NS 250 ML IV ONE (00:45)
[2018-04-18] MEDS ORDERED: cefTRIAXone 1 GM VIAL ONE (01:25)
[2018-04-18] MEDS ORDERED: AZITHROMYCIN 500 MG/VIAL (ZITHROMAX) IV ONE (01:25)
[2018-04-18 01:38] LABS: HEMATOCRIT 45.2 % (36-48); HEMOGLOBIN 14.8 g/dL (12.0-16.0); MEAN CORPUSCULAR VOLUME 95 fL (79.0-98.0); RED BLOOD CELL COUNT(AUTO) 4.77 MIL/uL (4.2-6.2); WHITE BLOOD COUNT (AUTO) 10.3 K/uL (4.8-10.8)
[2018-04-18 01:38] LABS: BILIRUBIN,URINE NEGATIVE (NEGATIVE); BLOOD, URINE NEGATIVE (NEGATIVE); CLARITY/URINE CLEAR (CLEAR); COLOR,URINE YELLOW (YELLOW); GLUCOSE,URINE NEGATIVE (NEGATIVE); KETONES,URINE NEGATIVE (NEGATIVE); LEUKOCYTE ESTERASE ,URINE NEGATIVE (NEGATIVE); NITRITE, URINE NEGATIVE (NEGATIVE); PROTEIN URINE NEGATIVE (NEGATIVE); UROBILINOGEN,URINE 0.2 (0.2-1.0)
[2018-04-18 01:39] LABS: LYMPHOCYTES % (AUTO) 15.7 % (20.5-51.5); MEAN CORPUSCULAR HEMOGLOBIN 31 pg (27-31); MEAN CORPUSCULAR HGB CONC 33 % (32-36); NEUTROPHILS % (AUTO) 71.5 % (40.0-70.0); PLATELET COUNT (AUTO) 210 K/uL (130-430)
[2018-04-18 01:40] LABS: BASOPHILS # (AUTO) 0.1 K/uL (0.0-0.2); BASOPHILS % (AUTO) 0.6 % (0.0-2.0); EOSINOPHILS # (AUTO) 0.1 K/uL (0.0-0.4); EOSINOPHILS % (AUTO) 1.4 % (0.0-4.0); LYMPHOCYTES # (AUTO) 1.6 K/uL (1.0-5.5); MONOCYTES # (AUTO) 1.1 K/uL (0.0-1.0); MONOCYTES % (AUTO) 10.8 % (1.7-9.3); NEUTROPHILS # (AUTO) 7.4 K/uL (1.8-7.7)
[2018-04-18 01:53] LABS: CALCIUM 8.7 mg/dL (8.4-11.0); CHLORIDE 101 mmol/L (98-107); CREATININE 0.77 mg/dL (0.55-1.30); GLUCOSE 115 mg/dL (70-99); SODIUM SERUM 139 mmol/L (136-145); UREA NITROGEN, BLOOD 12 mg/dL (8-21)
[2018-04-18 01:58] LABS: ALANINE AMINOTRANSFERASE 13 U/L (12-78); ASPARTATE AMINOTRANSFERASE 12 U/L (10-37); TOTAL BILIRUBIN 0.5 mg/dL (0.0-1.0)
[2018-04-18 01:59] LABS: GFR AFRICAN AMERICAN 97 mL/min (>90)
[2018-04-18 02:00] LABS: ANION GAP < 3 (5-15)
[2018-04-18 03:33] VITALS: BP_SYST 138
== END 2018-04-18 03:33 | disposition home or self-care (01) ==
LOC: SED 23:07
DX: J44.1 Chronic obstructive pulmonary disease with (acute) exacerbation (principal); I11.0 Hypertensive heart disease with heart failure; I50.9 Heart failure, unspecified; I48.91 Unspecified atrial fibrillation; F32.9 Major depressive disorder, single episode, unspecified; F43.10 Post-traumatic stress disorder, unspecified; Z85.3 Personal history of malignant neoplasm of breast; Z88.8 Allergy status to other drugs, medicaments and biological substances; Z91.048 Other nonmedicinal substance allergy status; Z79.899 Other long term (current) drug therapy
CPT/HCPCS: 36415; 71045; 80053; 81003; 83605; 83880; 84484; 85025; 86710; 87040; 87086; 94640; 96365; 96367; 96375; 99284; J0456; J0696; J1100; J7620

== ENCOUNTER 2019-06-15 14:42 | Emergency (ER) | payer OTHER, MEDICAID ==
[~2019-06-15] VITALS: Ht 177.8 cm; Wt 61.2 kg
--- NOTE | 2019-06-15 15:00 | NUR ---
PATIENT PLACED IN ER #[id number], ISOLATION, MICROFILM MACHINE OPERATOR, SAO2, ABP
[2019-06-15 15:09] VITALS: BP_SYST 155
--- NOTE | 2019-06-15 15:10 | NUR ---
Pt. arrived to ED ambulatory with c/o dizziness and chest pain that radiates to the left shoulder w/ posterior neck pain and n/v. Temp is 99.7 Pt. has COPD AND 02 sat is 90% with no respiratory distress noted at this time. Cap refill <3 sec. Skin is warm and dry.
--- NOTE | 2019-06-15 15:20 | NUR ---
Dr Umana at bedside examining patient
--- NOTE | 2019-06-15 15:25 | NUR ---
RT at bedside providing breathing treatment for pt.
[2019-06-15] MEDS ORDERED: ALBUTEROL SULFATE 0.083% 2.5 MG/3 ML VIAL.NEB INH ONE (15:30)
[2019-06-15 15:50] LABS: BASOPHILS # (AUTO) 0.1 K/uL (0.0-0.2); BASOPHILS % (AUTO) 0.7 % (0.0-2.0); EOSINOPHILS # (AUTO) 0.2 K/uL (0.0-0.4); EOSINOPHILS % (AUTO) 1.6 % (0.0-4.0); HEMATOCRIT 49.5 % (36-48); HEMOGLOBIN 16.3 g/dL (12.0-16.0); LYMPHOCYTES # (AUTO) 1.8 K/uL (1.0-5.5); LYMPHOCYTES % (AUTO) 17.6 % (20.5-51.5); MEAN CORPUSCULAR HEMOGLOBIN 31 pg (27-31); MEAN CORPUSCULAR HGB CONC 33 % (32-36); MEAN CORPUSCULAR VOLUME 95 fL (79.0-98.0); MONOCYTES # (AUTO) 1.1 K/uL (0.0-1.0); MONOCYTES % (AUTO) 10.2 % (1.7-9.3); NEUTROPHILS # (AUTO) 7.3 K/uL (1.8-7.7); NEUTROPHILS % (AUTO) 69.9 % (40.0-70.0); PLATELET COUNT (AUTO) 213 K/uL (130-430); RED BLOOD CELL COUNT(AUTO) 5.19 MIL/uL (4.2-6.2); RED CELL DISTRIBUTION WIDTH 14.4 % (9.0-15.0); WHITE BLOOD COUNT (AUTO) 10.4 K/uL (4.8-10.8)
[2019-06-15 16:00] LABS: INR 1.1 (0.8-1.2)
[2019-06-15 16:10] LABS: CALCIUM 8.7 mg/dL (8.4-11.0); CREATININE 0.61 mg/dL (0.55-1.30); POTASSIUM 4.3 mmol/L (3.5-5.1)
[2019-06-15 16:15] LABS: ALBUMIN 3.4 g/dL (3.4-4.8); TOTAL BILIRUBIN 0.3 mg/dL (0.0-1.0)
--- NOTE | 2019-06-15 16:35 | NUR ---
Report given to Chino FROST
[2019-06-15 17:05] VITALS: BP_SYST 134
[2019-06-15 17:05] LABS: BILIRUBIN,URINE NEGATIVE (NEGATIVE); BLOOD, URINE NEGATIVE (NEGATIVE); CLARITY/URINE CLEAR (CLEAR); COLOR,URINE YELLOW (YELLOW); GLUCOSE,URINE NEGATIVE (NEGATIVE); KETONES,URINE NEGATIVE (NEGATIVE); LEUKOCYTE ESTERASE ,URINE TRACE (NEGATIVE); NITRITE, URINE NEGATIVE (NEGATIVE); PROTEIN URINE NEGATIVE (NEGATIVE); UROBILINOGEN,URINE 0.2 (0.2-1.0)
--- NOTE | 2019-06-15 17:05 | NUR ---
Pt eloped from ER at this time, patient was given dicharge instructions by Dr Godoy prior elopment, per Amor FROST pt was in stable condition prior elopement from ER.
--- NOTE | 2019-06-15 17:05 | NUR ---
Returned from break at this time, pt not in the room, per ER staff pt eloped from ER with IV on R forearm , no IV catheter found in bed, called patient to [phone], [phone] and no answer, called [facility] department [phone] to notify pt needs to return to ER to remove IV from R forearm, charge nurse Chino RN notified. ER machining supervisor notified
[2019-06-15 17:19] LABS: BACTERIA,URINE FEW /HPF (None Seen); RBC,URINE 0-3 /HPF (0-3); WBC,URINE 0-3 /HPF (0-3)
--- NOTE | 2019-06-15 17:47 | NUR ---
Received a call from [place] police department, per police aide patient pulled out IV from R forearm,charge nurse notified
--- NOTE | 2019-06-15 17:58 | NUR ---
Patient called to ER stating IV was stuck in the gown and came out from RFA prior elopement , pt states she was hot and she left the ER without paper work. charge nurse notified
[2019-06-15] MEDS ORDERED: DIGO125T20 PO (20:34)
[2019-06-15] MEDS ORDERED: [UNRECOGNIZED DRUG - OTHER] PO (20:34)
== END 2019-06-15 17:05 | disposition home or self-care (01) ==
LOC: SED 14:42
DX: J44.9 Chronic obstructive pulmonary disease, unspecified (principal); R07.89 Other chest pain; I11.0 Hypertensive heart disease with heart failure; I50.9 Heart failure, unspecified; I48.91 Unspecified atrial fibrillation; J45.909 Unspecified asthma, uncomplicated; E07.9 Disorder of thyroid, unspecified; Z85.3 Personal history of malignant neoplasm of breast; Z90.49 Acquired absence of other specified parts of digestive tract; Z90.710 Acquired absence of both cervix and uterus; Z79.899 Other long term (current) drug therapy; Z88.8 Allergy status to other drugs, medicaments and biological substances; Z20.828 Contact with and (suspected) exposure to other viral communicable diseases
CPT/HCPCS: 36415; 71045; 80053; 81000; 83605; 83880; 84484; 85025; 85610; 86710; 87040; 93005; 94640; 99285; J7613; U0002; U0003